=== PATIENT | female | born 1970 | race Caucasian/White ===

== ENCOUNTER 2022-07-17 09:35 | Observation (INO) ==
--- NOTE | 2022-07-14 14:20 | Anesthesiology Consultation ---
Date of Service July 14, 2022 Assessment & Plan (1) Encounter for pre-operative examination: Chart Review Chart Review: Acceptable Risk for Surgery and Patient NOT seen in Pre Admission Testing - Check BSG AM DOS - Check test AM DOS -Discussed with Dr. Licea - patient can proceed as scheduled -COVID screening: Per PAT nursing assessment on 07/14/22. No known COVID-19 positive contacts or current COVID-19 related symptoms. Travel screen negative. Patient vaccinated for Covid. At surgeon discretion if preop Covid testing being done. 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 Chemotherapy currently on hold due to neuropathy and elevated liver enzymes. Patient has follow-up with general surgeryscheduled for surgery on 07/10/[address] Rodriguez. Follow-up in 4 weeks. ESS 12/15/21= Done under [facility] with LMA #4. Atraumatic x 1 attempt History Surgery Operation Date: 07/17/22 13:00 Proposed Procedures p Bilateral Mastectomy, Right Axillary Parker Node Biopsy and Right Axillary Padma Biopsy - Baltazar Rodriguez MD Height/Weight Height: 5 ft 7 in Weight: 105.233 kg Allergies Allergy/AdvReac Type Severity Reaction Status Date / Time morphine Allergy Severe Anaphylaxis Verified 07/14/22 14:46 sulfamethoxazole Allergy Intermediate itching Verified 07/14/22 14:46 [From and rash Sulfamethoxazole-Trimethoprim] trimethoprim Allergy Intermediate itching Verified 07/14/22 14:46 [From and rash Sulfamethoxazole-Trimethoprim] metformin Allergy Mild nausea/vomi Verified 07/14/22 14:46 ting Medications Home Medications Medication Instructions Recorded Confirmed Last Taken olmesartan 20 mg tablet 20 mg PO QPM 08/10/20 07/14/22 12/14/21 ondansetron HCl 8 mg tablet 8 mg PO Q12H PRN Nausea 08/10/20 07/14/22 12/14/21 pravastatin 20 mg tablet 20 mg PO QPM 08/10/20 07/14/22 12/14/21 dulaglutide 4.5 mg/0.5 mL 4.5 mg (0.5 mL) subcut WK #6 mL 08/02/21 07/14/22 12/14/21 subcutaneous pen injector albuterol sulfate 90 mcg/actuation See Rx Instructions .Route 09/30/21 07/14/22 12/14/21 aerosol inhaler .COMPLEX #8.5 ea fexofenadine 180 mg tablet 180 mg PO QPM 07/14/22 07/14/22 Unknown insulin aspart U-100 100 unit/mL 1 sliding scale dose subcut 07/14/22 07/14/22 Unknown (3 mL) subcutaneous pen (Novolog USEASDIRECTD FlexPen U-100 Insulin aspart) magnesium 250 mg tablet 500 mg PO HS 07/14/22 07/14/22 Unknown omeprazole 20 mg capsule,delayed 20 mg PO QPM 07/14/22 07/14/22 Unknown release oxycodone 20 mg tablet,extended 20 mg PO BID 07/14/22 07/14/22 Unknown release,12 hr oxycodone 30 mg tablet 30 mg PO QID PRN Pain 07/14/22 07/14/22 Unknown Past Medical History Medical History (Updated 07/14/22 @ 15:33 by Evelyn Sotelo PA-C) Bilateral sacroiliitis Breast cancer DX 12/2021>RT BREAST + LYMPH NODE (RT ARM RESTRICTION) FINISHED CHEMO 6 WEEKS AGO/NO RADIATION Chronic nausea Diabetes GERD (gastroesophageal reflux disease) History of kidney stones NO SURGERY HTN (hypertension) Hyperlipidemia Left ventricular hypertrophy due to hypertensive disease Leg length discrepancy RLE 0.8cm short Lumbago Neuropathy Opioid dependence Restless leg syndrome Seasonal allergies uses inhaler prn Sleep apnea cpap Thrombocytopenia (~2012) Evaluation by Hematology Thyroid nodule NEEDS REPEAT BIOPSY/BENIGN Follows with S ENT Past Family History Family History Aunt Breast cancer Mother Diabetes Heart disease Hypertension Father Diabetes Hypertension Brother Hypertension Sister Hypertension Other No family history of adverse response to anesthesia No family history of bleeding disorder Denies family history of Ovarian cancer Prostate cancer Myocardial infarction Lung cancer Colorectal cancer Past Surgical History Surgical History (Updated 07/14/22 @ 15:19 by Evelyn Sotelo PA-C) H/O breast biopsy H/O laparoscopy H/O shoulder surgery (~1996) Left H/O sinus surgery History of esophageal dilatation (~2017) History of esophagogastroduodenoscopy (EGD) (~2017) History of vascular access device POWER PORT PER CARD/PT WILL BRING CARD DOS Hx of section X 1 S/P colonoscopy Wallace teeth removed Social History Smoking Status: Current every day smoker tobacco type: cigarettes Smoking cigarettes per day: 10 per day-advised Hx Alcohol Use: No substance use type: does not use Testing Laboratory Results 06/28/22= WBC: 5.93 H/H: 14.2/42.9 PLATELETS: 89 (chronic thrombocytopenia- platelets 105-106 in 05/2022); follows with heme/onc (reviewed labs 06/28/22) SODIUM: 136 POTASSIUM: 4.4 CHLORIDE: 103 CO2: 25 BUN: 8 CREATININE: 0.7 GLUCOSE: 324 AST: 33 ALT: 66 ALK PHOS: 142 (LFTs improved per [facility] heme/onc) 05/31/22= HGB A1C: 8.2 Electrocardiogram Date: 09/23/21 Findings: + ST @ (134bpm ) Right atrial enlargement Cannot rule out anterior infarct Chest X-Ray Date: 09/22/21 Findings: + NAD FINDINGS: An AP, portable, upright chest radiograph is obtained. No prior studies are available for comparison at the time of dictation. Partially degraded The cardiomediastinal silhouette is top normal for projection noting atherosclerotic calcification of the thoracic aorta. There is bibasilar atelectasis. Lungs and pleural spaces are otherwise clear. No pneumothorax is seen. The bony thorax is grossly intact. Postoperative change is noted in the left shoulder. Echocardiogram Date: 02/02/22 EF: 64% LV Function: normal RWMA: + none Other Findings: + LVH (mild/concentric ); no diastolic dysfunction Valvular Disease: + no significant valvular disease No pericardial effusion is noted. No evidence of pulmonary hypertension Stress Test Date: 11/12/19 Type: nuclear Normal stress Myoview study. Normal wall motion and ejection fraction. Other Testing Chest/Abdomen/Pelvis CTA 10/20/21= Unremarkable CT angiogram of the thoracic aorta. There is no airspace consolidation typical for pneumonia or pleural effusion. Age advanced coronary artery calcification. There is an indeterminant 1.6 cm nodular asymmetry in the right breast. This is not well evaluated by CT, and follow-up at the breast center with mammography is recommended for further assessment. Unremarkable CT angiogram of the abdominal aorta and its major branches. No acute infectious or inflammatory findings are seen in the abdomen or pelvis. Hepatic steatosis. Mild hepatomegaly.
[~2022-07-17 09:35] MED LIST: ENOXAPARIN INJ 30 MG/0.3 ML SYR SQ SCH; LR 15ML/HR IV SCH; ceFAZolin 2000MG 2,000 MG/15 ML SYR IV SCH
[2022-07-17] MEDS ORDERED: GLYCOPYRROLATE 0.2 MG/ML VIAL ONE (09:41)
[2022-07-17] MEDS ORDERED: DEXAMETHASONE SOD INJ 4 MG/ML VIAL ONE (09:41)
[2022-07-17] MEDS ORDERED: NEOSTIGMINE METHYLSULFATE 1 MG/ML 10ML VIAL ONE (09:41)
[2022-07-17] MEDS ORDERED: ONDANSETRON INJ 2 MG/ML 2 ML VIAL ONE ×2 (09:41→13:02)
[2022-07-17] MEDS ORDERED: PROPOFOL IV EMULSION 10 MG/ML 20 ML VIAL IV ONE (09:41)
[2022-07-17] MEDS ORDERED: fentaNYL citrate PF 100 MCG/2 ML VIAL ONE ×3 (09:41→13:31)
[2022-07-17] MEDS ORDERED: MIDAZOLAM HCL 1 MG/ML 2ML VIAL ONE (09:41)
[2022-07-17] MEDS ORDERED: LARYING-O-JET KIT (LTA) ONE (09:42)
[2022-07-17] MEDS ORDERED: LIDOCAINE 2% MPF LOCAL 5 ML VIAL ONE (09:42)
[2022-07-17] MEDS ORDERED: ROCURONIUM BROMIDE 10 MG/ML 5 ML VIAL IV ONE ×2 (09:42)
--- NOTE | 2022-07-17 10:08 | History & Physical Bridge Note ---
Date of Service July 17, 2022 History & Physical Bridge Note I have examined the patient, reviewed the History & Physical and in the interval since the performance of the History & Physical I have noted the following changes of clinical significance: no changes noted
[2022-07-17] MEDS ORDERED: LABETALOL HCL IV 5 MG/ML 20ML IV PRN (10:21)
[2022-07-17] MEDS ORDERED: ATROPINE SULFATE 0.1 MG/ML 10ML SYR IV PRN (10:21)
[2022-07-17] MEDS ORDERED: ePHEDrine sulfate 50 MG/ML AMP IV PRN (10:21)
[2022-07-17] MEDS ORDERED: ONDANSETRON INJ 2 MG/ML 2 ML VIAL IV PRN ×2 (10:21→15:09)
[2022-07-17] MEDS ORDERED: PROMETHAZINE HCL 12.5 MG in SODIUM CHLORIDE 0.9% 50 ML IV PRN ×2 (10:21→15:09)
[2022-07-17] MEDS ORDERED: FLUMAZENIL 0.1 MG/1 ML 10 ML VIAL IV PRN (10:21)
[2022-07-17] MEDS ORDERED: NALOXONE HCL 0.4 MG/1 ML VIAL/CARP IV PRN (10:21)
[2022-07-17] MEDS ORDERED: METHYLENE BLUE 0.5% 10 ML VIAL ONE (10:29)
[2022-07-17] MEDS ORDERED: BUPIVACAINE/EPINEPHRINE 0.5% MPF 1:200,000 30 ML VIAL ONE (10:29)
[2022-07-17] MEDS ORDERED: BUPIVACAINE LIPOSOME 1.3% 266 MG/20 ML VIAL ONE (10:30)
--- NOTE | 2022-07-17 10:58 | Nuclear Medicine Report ---
LYMPHOSCINTIGRAPHY CLINICAL HISTORY: Right breast cancer. PROCEDURE: Using standard sterile technique, 4 intradermal and one deep injection of 0.519 mCi of Lym phoseek was placed in the right periareolar breast. The patient tolerated the procedure well. There w ere no immediate complications. The patient was subsequently transported to the surgical suite. No im aging was obtained at the referring physician's request. IMPRESSION: Injection of 0.519 mCi of Lymphoseek in the right breast. ACT 112: Negative or not required by law. Electronically signed by: Zion Orr M.D. 07/17/2022 10:57 AM
[2022-07-17] MEDS ORDERED: ePHEDrine sulfate 50 MG/ML AMP ONE (12:40)
[2022-07-17] MEDS ORDERED: PHENYLEPHRINE 100MCG/ML 5ML SYR ONE (13:01)
--- NOTE | 2022-07-17 14:51 | Post Operative Brief Note ---
Immediate Post Op Note v1 Date of Surgery July 17, 2022 Pre & Post Diagnosis Operation Date: 07/17/22 13:00 Pre-Op Diagnosis: Right Breast Cancer Post-Op Diagnosis: Right Breast Cancer I identified the patient and participated in the time-out.: Yes Procedure Operation Date: 07/17/22 13:00 Actual Procedures p Bilateral Mastectomy, Right Axillary Hawthorne Node Biopsy and Right Axillary Padma Biopsy(Bilateral) - Baltazar Rodriguez MD Surgeon Baltazra Rodriguez MD General Agent IRVING Gaines assisted with tissue retraction, camera op, closure Estimated Blood Loss 25 Findings Consistent with Post-Op Diagnosis Drains Stoney-Ruiz Drain (10mm flat, bilateral breasts)
--- NOTE | 2022-07-17 14:58 | Operative Report ---
Post Operative Report Pre & Post Diagnosis Operation Date: 07/17/22 13:00 Pre-Op Diagnosis: Right Breast Cancer Post-Op Diagnosis: Right Breast Cancer I identified the patient and participated in the time-out.: Yes Procedure Operation Date: 07/17/22 13:00 Actual Procedures p Bilateral Mastectomy, Right Axillary Lester Node Biopsy and Right Axillary Padma Biopsy(Bilateral) - Baltazar Rodriguez MD Surgeon Baltazar Rodriguez MD Tour Sales Representative IRVING Gaines assisted with tissue retraction, camera op, closure Estimated Blood Loss 25 Findings Consistent with Post-Op Diagnosis Lester lymph node x3; first sentinel lymph node contained Padma sports marketing coordinator marker Specimens Left breast mastectomy Right breast mastectomy Lester lymph node x1, 200 count Lester lymph node x2, 20 count Send lymph node x3, 145 count Drains Two 10 Azerbaijani flat LOGAN drains Anesthesia Type General Complications No immediate complications Description of Procedure Patient was taken the operating room, placed supine on the operating table. A timeout was performed, perioperative antibiotics were administered, SCD boots were placed. After adequate anesthesia and analgesia was obtained, the bilateral chest wall and axilla were prepped and draped in the normal sterile fashion. Incision lines were marked for both right and left breast. The Padma sports marketing coordinator probe and the neoprobe were used to confirm sentinel lymph node and Padma Bowling Ball Mold Assembler localized node. Exparel was injected bilaterally to the breast tissue. We began on the left. The elliptical incision was made with a 15 blade scalpel and carried down to the level of subcutaneous tissue. This elliptical incision encompassed the nipple areolar complex. The breast tissue was removed from the overlying skin and soft tissue with a traction countertraction technique using the Bovie electrocautery. The limits of the dissection were superiorly the clavicle, medially to the sternum, inferiorly to the external oblique fascia, and laterally the axillary fat pad. Once dissection was complete, the breast was removed from the underlying pectoralis major muscle with the electrocautery, taking care to remove the fascia with it. Bleeding vessels were clamped and tied with 3-0 silk. Breast was oriented with sutures and ink and was sent off the field for specimen. Attention was turned hemostasis, and the area was copiously irrigated and suctioned free. Hemostasis was excellent. A 10 Azerbaijani flat round LOGAN drain was placed through separate stab incision was secured with 2-0 nylon suture. Subcutaneous tissue was closed with interrupted 3-0 Vicryl. The skin was closed with running 4-0 Monocryl subcuticular stitch. Dermabond was applied. We then turned our attention to the right breast. Again the elliptical incision was made with 15 blade scalpel and carried down to the level of the subcutaneous tissue. This incision encompassed the nipple areolar complex. The superior flap was raised using the traction countertraction technique with the Bovie electrocautery. This exposed the axilla laterally. Using the neoprobe and the Padma sports marketing coordinator device, is able to localize the sentinel lymph node. The first sentinel lymph node contained the Padma sports marketing coordinator device. It was excised and sent off field for specimen. Two other sentinel lymph nodes were identified using the neoprobe, were dissected free circumferentially, and were sent off field for specimen. The background radiation was less than 5% of the sentinel lymph node. We then continued with the mastectomy on the right side. Again the limits of the dissection were the clavicle superiorly, the sternum medially, and the external bleak fascia inferiorly, as well as the axillary fat pad laterally. Once the dissection was complete, the breast was removed from the underlying pectoralis major muscle with the electrocautery, taking care to remove the fascia with it. Bleeding vessels were clamped and tied with 3-0 silk. The breast was oriented with sutures and ink and was sent off field for specimen. Attention was turned hemostasis. The area was copiously irrigated and suctioned free, and hemostasis was found to be excellent. A 10 Azerbaijani flat LOGAN drain was placed through separate stab incision was secured with 2-0 nylon suture. Subcutaneous tissue was closed with interrupted 3-0 Vicryl. The skin was closed with a running 4-0 Monocryl subcuticular stitch. Dermabond was applied. Dressings were applied. She tolerated the procedure without complication, transferred in stable condition to the PACU. All instrument, needle, and sponge counts were correct at the end of the case. My television production assistant was necessary throughout the procedure for tissue retraction, possible camera operation, and closure of the wounds. I understand that section 1842(b)(7)(D) of the Social Security act generally prohibits Medicare physician fee schedule payment for the services of assistants at surgery in teaching hospitals when qualified residents are available to furnish such services. I certify that the services for which payment is claimed were medically necessary and that no qualified resident was available to perform the services. I further understand that these services are subject to postpay ment review by the Medicare carrier. I attest to the content of the Intraoperative Record and any orders documented therein. Any exceptions are noted below.
[2022-07-17] MEDS ORDERED: LACTATED RINGER'S 1,000 ML IV SCH (15:09)
[2022-07-17] MEDS ORDERED: diphenhydrAMINE Capsule 25 MG CAP PO PRN (15:09)
[2022-07-17] MEDS ORDERED: oxyCODONE/ACETAMINOPHEN 5mg/325mg TAB PO PRN (15:10)
[2022-07-17] MEDS ORDERED: KETOROLAC 30 MG/ML VIAL ONE (15:17)
[2022-07-17] MEDS: fentaNYL citrate PF 100 MCG/2 ML VIAL IV PRN ×2 (15:20→15:25)
--- NOTE | 2022-07-17 15:38 | Anesthesiology Progress Note ---
Date of Service July 17, 2022 Anesthesia Post Procedure Vital Signs Vital Signs: Temp Pulse Resp BP Pulse Ox O2 Del Method 07/17/22 10:06 36.8 C 106 H 20 137/79 98 Room Air Transfer of Care Handoff Completed per policy Notes Mental Status: alert / awake / arousable Patient Amnestic to Procedure: Yes Nausea / Vomiting: adequately controlled Pain: adequately controlled Airway Patency, RR, SpO2: stable & adequate BP & HR: stable & adequate Hydration State: stable & adequate Anesthetic Complications: no major complications apparent
[2022-07-17] MEDS ORDERED: HYDROmorphone INJ 1 MG/ML SYRINGE ONE (16:04)
[2022-07-17] MEDS ORDERED: HYDROmorphone INJ 0.5 MG/0.5 ML SYR IV SCH (16:15)
--- NOTE | 2022-07-17 19:12 | Hospitalist Consultation ---
Date of Consultation July 17, 2022 Assessment & Plan (1) Tachycardia: Patient has elevated heart rate. EKG confirms sinus tchycardia, review of records shows her HR has been elevated in the past, however this is on the higher range. Will obtain a lactic acid and renal panel. will give fluid overnight and monitor. History of Present Illness Reason for Consultation: Medical management Attending Physician: Baltazar Rodriguez MD History of Present Illness 52 yo female with PMH described below is hospitalized for a partialBilateral M astectomy, Right Axillary Crozier Node Biopsy and Right Axillary Padma Biopsy(Bilateral) Medicine was consulted for post op management. HR is elevated at 110 or 120. However, patient reports this is common for her and she has no new complaints. Allergies Allergy/AdvReac Type Severity Reaction Status Date / Time morphine Allergy Severe Anaphylaxis Verified 07/17/22 09:58 sulfamethoxazole Allergy Intermediate itching Verified 07/17/22 09:58 [From and rash Sulfamethoxazole-Trimethoprim] trimethoprim Allergy Intermediate itching Verified 07/17/22 09:58 [From and rash Sulfamethoxazole-Trimethoprim] metformin Allergy Mild nausea/vomi Verified 07/17/22 09:58 ting Home Medications Medication Instructions Recorded Confirmed Type olmesartan 20 mg tablet 20 mg PO QPM 08/10/20 07/17/22 History ondansetron HCl 8 mg tablet 8 mg PO Q12H PRN Nausea 08/10/20 07/17/22 History pravastatin 20 mg tablet 20 mg PO QPM 08/10/20 07/17/22 History dulaglutide 4.5 mg/0.5 mL 4.5 mg (0.5 mL) subcut WK #6 mL 08/02/21 07/17/22 Rx subcutaneous pen injector albuterol sulfate 90 mcg/actuation See Rx Instructions .Route 09/30/21 07/17/22 Rx aerosol inhaler .COMPLEX #8.5 ea fexofenadine 180 mg tablet 180 mg PO QPM 07/14/22 07/17/22 History insulin aspart U-100 100 unit/mL 1 sliding scale dose subcut 07/14/22 07/17/22 History (3 mL) subcutaneous pen (Novolog USEASDIRECTD FlexPen U-100 Insulin aspart) magnesium 250 mg tablet 500 mg PO HS 07/14/22 07/17/22 History omeprazole 20 mg capsule,delayed 20 mg PO QPM 07/14/22 07/17/22 History release oxycodone 20 mg tablet,extended 20 mg PO BID 07/14/22 07/17/22 History release,12 hr oxycodone 30 mg tablet 30 mg PO QID PRN Pain 07/14/22 07/17/22 History oxycodone-acetaminophen 5 mg-325 1 tab PO Q6H PRN pain #15 tabs 07/18/22 Rx mg tablet (Percocet) Patient History Medical History Bilateral sacroiliitis Breast cancer DX 12/2021>RT BREAST + LYMPH NODE (RT ARM RESTRICTION) FINISHED CHEMO 6 WEEKS AGO/NO RADIATION Chronic nausea Diabetes GERD (gastroesophageal reflux disease) History of kidney stones NO SURGERY HTN (hypertension) Hyperlipidemia Left ventricular hypertrophy due to hypertensive disease Leg length discrepancy RLE 0.8cm short Lumbago Neuropathy Opioid dependence Restless leg syndrome Seasonal allergies uses inhaler prn Sleep apnea cpap Thrombocytopenia (~2012) Evaluation by Hematology Thyroid nodule NEEDS REPEAT BIOPSY/BENIGN Follows with [facility] ENT Surgical History H/O breast biopsy H/O laparoscopy H/O shoulder surgery (~1996) Left H/O sinus surgery History of esophageal dilatation (~2017) History of esophagogastroduodenoscopy (EGD) (~2017) History of vascular access device POWER PORT PER CARD/PT WILL BRING CARD DOS Hx of section X 1 S/P colonoscopy [place] teeth removed Family History Aunt Breast cancer Mother Diabetes Heart disease Hypertension Father Diabetes Hypertension Brother Hypertension Sister Hypertension Other No family history of adverse response to anesthesia No family history of bleeding disorder Denies family history of Ovarian cancer Prostate cancer Myocardial infarction Lung cancer Colorectal cancer Social History Smoking Status: Current every day smoker Tobacco Type: Cigarettes Age Started Using Tobacco: 33; packs per day: 0.5; Cigarettes Per Day: 10 per day-advised; Second Hand Exposure: No; Hx Alcohol Use: No Preferred Language: Vincentian Communication Ability: Effective Visual Impairment: Partially Limited Hearing Ability: Hard of Hearing Fan Runner Required: No Beliefs That Will Affect Care: None marital status: marital status details: with Current Living Situation: Family current occupational status: disabled How many Children do You have: 1 How many Children do You have Comment: Scarlett Concha Feels Safe at Home: Yes Childhood Exposure to Second-Hand Smoke: No caffeine: Yes during the past year weight has: increased > 10 lbs Dental Care, Regularly: Yes Physical Activity Frequency: 5-6 Times per Week Seatbelt Use: always Sunscreen Use: Yes Assistive Devices: CPAP Review of Systems Review of Systems: All systems reviewed & are unremarkable except as noted in HPI & below Physical Exam Constitutional: WD/WN, vitals as above Eyes: PERRL, conjunctivae normal, anicteric sclerae ENMT: external ear and nose normal, oropharynx normal Respiratory: not using accessory muscles to breath Cardiovascular: RRR, no murmur, no edema (except for tachycardia) Gastrointestinal (Abdomen): normal bowel sounds, soft, nontender, no hepatosplenomegaly Musculoskeletal: no cyanosis or clubbing, extremities motor strength 5/5 Psychiatric: A+Ox3, euthymic affect Results & Data Results & Data Vital Signs (Past 12 Hours) Vital Signs Temp Pulse Pulse Resp BP Pulse Ox O2 Del Method 07/17/22 18:25 Room Air 07/17/22 19:00 36.6 C 128 H 16 114/67 97 Room Air 07/17/22 18:00 36.5 C 122 H 18 132/69 98 Room Air 07/17/22 17:39 36.4 C L 117 H 18 146/83 H 97 Room Air 07/17/22 17:00 36.8 C 122 H 17 125/75 96 Room Air 07/17/22 16:30 37.3 C 113 H 18 128/87 95 Room Air 07/17/22 16:20 37.3 C 111 H 17 145/86 H 93 Room Air 07/17/22 16:10 37.3 C 109 H 19 126/89 93 Room Air 07/17/22 16:00 37.3 C 109 H 24 139/75 93 Room Air 07/17/22 15:50 37.3 C 112 H 22 145/83 H 97 Room Air 07/17/22 15:40 101 H 21 129/81 96 Oxymask 07/17/22 15:30 101 H 21 140/72 94 Oxymask 07/17/22 15:20 100 H 26 H 155/82 H 95 Oxymask 07/17/22 15:12 36.3 C L 100 H 25 H 137/82 99 Oxymask 07/17/22 10:06 36.8 C 106 H 20 137/79 98 Room Air O2 Flow Rate 07/17/22 18:25 07/17/22 19:00 07/17/22 18:00 07/17/22 17:39 07/17/22 17:00 07/17/22 16:30 07/17/22 16:20 07/17/22 16:10 07/17/22 16:00 07/17/22 15:50 07/17/22 15:40 4 07/17/22 15:30 5 07/17/22 15:20 6 07/17/22 15:12 7 07/17/22 10:06 PG Care Time/CCT Total # of Minutes Spent Total Time Spent with Patient: Total time spent is greater than 50% in coordination of care (as documented) at patient's floor/unit and/or counseling patient: Coding Level of Care Code 04030 IN/OBS CONSULT LVL 3,45M Diagnoses Tachycardia R00.0
[2022-07-17 20:39] LABS: Base Excess VBG -2.2 mEq/L; HCO3 VBG 23 mmol/L; Oxygen Saturation VBG 80.7 %; PCO2 VBG 41 mmHg (38-50); PO2 VBG 48 mmHg; pH VBG 7.36 (7.36-7.41)
[2022-07-17 20:41] LABS: Hematocrit (blood only) 38.4 % (37.0-47.0); Mean Corpuscular Hemoglobin 33.3 pg (25.0-34.0); Mean Corpuscular Hgb Conc 33.9 g/dL (32.0-36.0); Mean Corpuscular Volume 98.5 fL (80.0-100.0); Platelet Count 105 K/uL (130-400); RDW Coefficient of Variation 12.6 % (11.5-14.5); RDW Standard Deviation 45.1 fL (36.4-46.3); White Blood Count 9.04 K/ul (4.8-10.8)
[2022-07-17 20:59] LABS: BUN Creatinine Ratio 12.1 (10-20); Calcium 8.6 mg/dl (8.6-10.3); Creatinine Clr Calc Pharmacy 126.1 ml/min; Est GFR (African American) 118.5 ml/min; Est GFR (Non-African American) 102.3 ml/min; Potassium 4.2 mmol/L (3.5-5.1)
[2022-07-17] MEDS ORDERED: FEXOFENADINE HCL 180 MG TAB PO SCH (21:00)
[2022-07-17] MEDS ORDERED: PANTOprazole 40 MG TAB PO SCH (21:00)
[2022-07-17] MEDS ORDERED: PRAVASTATIN SOD 20 MG TAB PO SCH (21:00)
[2022-07-17] MEDS ORDERED: LOSARTAN POTASSIUM 50 MG TAB PO SCH (21:00)
[2022-07-17] MEDS ORDERED: CARBOHYDRATES FOR HYPOGLYCEMIA PO PRN (21:04)
[2022-07-17] MEDS ORDERED: GLUCAGON FOR INJ 1 MG VIAL SQ PRN (21:04)
[2022-07-17] MEDS ORDERED: GLUCOSE 10 TAB/TUBE PO PRN (21:04)
[2022-07-17] MEDS ORDERED: DEXTROSE 50% 50 ML SYRINGE IV PRN (21:04)
[2022-07-17] MEDS ORDERED: GLUCOSE 40% GEL 15 GM TUBE PO PRN (21:04)
[2022-07-17] MEDS ORDERED: ACETAMINOPHEN 325 MG TAB PO PRN (21:06)
[2022-07-17] MEDS ORDERED: ONDANSETRON 4 MG OD TAB PO PRN (21:10)
[2022-07-17] MEDS ORDERED: MAGNESIUM OXIDE 400 MG TAB PO SCH (21:10)
[2022-07-17] MEDS ORDERED: LACTATED RINGER'S 1,000 ML IV ONE (21:16)
[2022-07-17] MEDS ORDERED: INSULIN ASPART PER UNIT CHARGE ONE (21:52)
[2022-07-17] MEDS: INSULIN ASPART PER UNIT CHARGE SC SCH (21:55)
[2022-07-17] MEDS: oxyCODONE HCL 20 MG TABCR (OxyCONTIN) PO SCH (21:57)
[2022-07-18] MEDS: oxyCODONE HCL IR 5 MG TAB (IMMEDIATE RELEASE) PO PRN ×2 (00:26→04:15)
[2022-07-18] MEDS ORDERED: oxyCODONE HCL IR 5 MG TAB (IMMEDIATE RELEASE) PO PRN ×2 (04:14→04:15)
[2022-07-18] MEDS ORDERED: HYDROmorphone INJ 0.5 MG/0.5 ML SYR IV PRN (06:45)
[2022-07-18] MEDS ORDERED: oxyCODONE HCL 20 MG TABCR (OxyCONTIN) PO SCH (06:45)
[2022-07-18] MEDS ORDERED: ENOXAPARIN INJ 40 MG/0.4 ML SYR SQ SCH (08:00)
[2022-07-18] MEDS: oxyCODONE HCL 20 MG TABCR (OxyCONTIN) PO SCH (08:34)
[2022-07-18] MEDS: INSULIN ASPART PER UNIT CHARGE SC SCH ×2 (08:55→12:44)
--- NOTE | 2022-07-18 09:08 | Surgery Progress Note ---
Date of Service July 18, 2022 Assessment & Plan (1) Infiltrating ductal carcinoma of right breast: Plan: pod 1. S/p bilateral mastectomy with sentinel lymph node biopsy on the right Doing well. Added OxyContin and IV Dilaudid for pain control DVT prophylaxis with SCD boots, Lovenox, early ambulation aggressive pulmonary toilet with early ambulation and incentive spirometry Advance diet as tolerated Drain teaching for home Possible discharge to home after lunch today if okay with Medicine Admission and Anticipated Discharge Date Admission Date: July 17, 2022 Subjective postop day 1 status post bilateral mastectomy with right sentinel lymph node biopsy. Had some pain overnight as she missed her dose of OxyContin. Doing fairly well today. Tolerating regular diet. No fevers or chills. No nausea or vomiting. Physical Exam Physical Exam: NAD, a and O x3 chest wall: Dressings clean, dry, intact; LOGAN drains with minimal serosanguineous output Results & Data Vital Signs (Past 12 Hours) Vital Signs Temp Pulse Resp BP Pulse Ox O2 Del Method 07/18/22 07:32 37.1 C 112 H 20 111/74 95 CPAP 07/18/22 03:00 37.3 C 109 H 18 122/77 99 Room Air 07/17/22 22:18 37.1 C 103 H 18 126/77 98 Room Air
--- NOTE | 2022-07-18 12:55 | Electrocardiogram Report ---
Test Reason : Blood Pressure : / mmHG Vent. Rate : 113 BPM Atrial Rate : 113 BPM P-R Int : 142 ms QRS Dur : 076 ms QT Int : 344 ms P-R-T Axes : 059 018 047 degrees QTc Int : 471 ms Sinus tachycardia Low voltage QRS Borderline ECG When compared with ECG of 23-SEP-2021 17:59, No significant change was found Confirmed by Parveen Cheek ([id number]) on 07/18/2022 12:55:19 PM Referred By: Baltazar Rodriguez Confirmed By:Parveen Cheek
--- NOTE | 2022-07-18 13:09 | Hospitalist Progress Note ---
Date of Service July 18, 2022 Assessment & Plan (1) Tachycardia: Plan: Patient has elevated heart rate. EKG confirms sinus tachycardia. review of records shows her HR has been elevated in the past, however this is on the higher range. Will obtain a lactic acid and renal panel. will give fluid overnight and monitor. On 07/18, her HR appears improved. Clinically feels well. Her lactic acid was elevated but her BP is strong. She has good perifusion. This is likely lactic acidosis type B. Admission and Anticipated Discharge Date Admission Date: July 17, 2022 Subjective 52 yo female reports feeling well. She states she would like to go home. She has no complaints. Review of Systems Review of Systems: All systems reviewed & are unremarkable except as noted in HPI & below Physical Exam Constitutional: WD/WN, vitals as above Eyes: PERRL, conjunctivae normal, anicteric sclerae ENMT: external ear and nose normal, oropharynx normal Cardiovascular: RRR, no murmur, no edema (except for tachycardia) Gastrointestinal (Abdomen): normal bowel sounds, soft, nontender, no hepatosplenomegaly Musculoskeletal: no cyanosis or clubbing, extremities motor strength 5/5 Psychiatric: A+Ox3, euthymic affect Results & Data Results & Data Vital Signs (Past 12 Hours) Vital Signs Temp Pulse Resp BP Pulse Ox O2 Del Method 07/18/22 07:32 37.1 C 112 H 20 111/74 95 CPAP 07/18/22 03:00 37.3 C 109 H 18 122/77 99 Room Air PG Care Time/CCT Total # of Minutes Spent Total Time Spent with Patient: Total time spent is greater than 50% in coordination of care (as documented) at patient's floor/unit and/or counseling patient: Coding Level of Care Code 06256 SUB INP/OBS CARE 2/35MIN Diagnoses Tachycardia R00.0
--- NOTE | 2022-07-20 09:10 | Discharge Summary ---
Date of Service July 20, 2022 Admission HPI Per Admitting Provider Florencia presented to [facility] for elective bilateral mastectomy and right sentinel lymph node biopsy for infiltrating ductal carcinoma of right breast s/p neoadjuvant chemotherapy. Principal Diagnosis Infiltrating ductal carcinoma of right breast s/p neoadjuvant chemotherapy Discharge Data Allergies Allergy/AdvReac Type Severity Reaction Status Date / Time morphine Allergy Severe Anaphylaxis Verified 07/17/22 09:58 sulfamethoxazole Allergy Intermediate itching Verified 07/17/22 09:58 [From and rash Sulfamethoxazole-Trimethoprim] trimethoprim Allergy Intermediate itching Verified 07/17/22 09:58 [From and rash Sulfamethoxazole-Trimethoprim] metformin Allergy Mild nausea/vomi Verified 07/17/22 09:58 ting Consultations 07/17/22 15:09 Consult Hospitalist Routine Procedures Performed Operation Date: 07/17/22 13:00 Actual Procedures p Bilateral Mastectomy, Right Axillary [place] Node Biopsy and Right Axillary [place] Biopsy(Bilateral) - Baltazar Rodriguez MD Hospital Course (1) Infiltrating ductal carcinoma of right breast: / Patient was taken to operating room and underwent bilateral mastectomy with right axillary sentinel lymph node biopsy by Dr. Rodriguez on 07/17/2022. Patient tolerated procedure well and was transferred to recovery then to medica/surgical floor for postoperative observation and pain management. Hospitalist was consulted due to comorbidities. She was tachycardia in evening of operative day however hemodynamically stable. Lactic acid was elevated but she was otherwise stable. POD # 1 patient was doing well. Had moderate postop pain in the evening but missed her home OxyContin dose. Patients diet was advanced as tolerated and activity as tolerated. Minimal laurita drain output. Patient was discharged home on POD # 1 in stable condition once pain better controlled. Total Time Total Time Spent Total Time Spent (In Minutes): 20 Discharge Plan Discharge Items Patient Disposition: Home - Self-Care Reason For Visit: Right Breast Cancer Discharge Diagnosis: Right breast cancer Activity: Per Instructions section Lifting: No more than 10 pounds Sexual Activity: Wait until after follow-up appointment Exercise/Sports: Wait until after follow-up appointment Non-emergency contact: Surgeon Call non-emergency contact if: you have any medication questions, your symptoms worsen, your pain is not controlled, your pain is worsening, your pain is unusual for you, your pain is concerning for you, your temperature is above 101.5, your wound has increased redness, your wound has increased drainage and your wound pain has increased Follow-up/Referrals: Milton Steward, [Primary Care Provider] - 07/27/22 11:30 am Diet: Regular Addtl Attending Provider Instructions: ACTIVITY RECOMMENDATIONS: * No lifting, pushing, pulling or exercising the affected side for2 weeks. RETURN TO SCHOOL/WORK: * No return to work or school until after follow up appointment. MEDICATIONS: * Percocet 5/325mg tabs every 4-6 hours as needed for pain. DIET: * Resume previous diet. SPECIAL CARE INSTRUCTIONS: * Keep dressings on for 48 hours. You may then remove the dressing. Use the provided bra for support. * Empty and record drain output as directed. When drainage drops below 20mL/day for 2 consecutive days, call the office for appointment to remove drain. * Leave Dermabond in place. It will peel off on its own after 1-2 weeks. * Apply ice 10 minutes on and 10 minutes off as needed. * Exercises for shoulder motion: small circles with the right arm/shoulder a few times a day; "walk" up the wall with fingers a few times a day (as far as you can go without pain). These will help keep mobility of your arms/shoulders * Your referring physician should have the results after approximately 5 to 7 business days. * Call for unusual bleeding, fever, drainage, etc or if you have any questions call during normal business hours. * For an emergency after hours go to the emergency room. FOLLOW UP VISIT: Follow-up with Referring Physician as scheduled. Pending Studies at Discharge: No Stand-Alone Forms: [facility] Medications and DC Order Prescriptions: New oxycodone-acetaminophen [Percocet] 5-325 mg tablet 1 tab PO Q6H PRN (Reason: pain) Qty: 15 0RF Continued olmesartan 20 mg tablet 20 mg PO QPM ondansetron HCl 8 mg tablet 8 mg PO Q12H PRN (Reason: Nausea) pravastatin 20 mg tablet 20 mg PO QPM albuterol sulfate 90 mcg/actuation HFA aerosol inhaler See Rx Instructions .ROUTE .COMPLEX Qty: 8.5 3RF Dose Instruction: INHALE 1 PUFF BY MOUTH 4 TIMES A DAY Patient Comments: TAKES PRN SOB Rx Instructions: INHALE 1 PUFF BY MOUTH 4 TIMES A DAY dulaglutide 4.5 mg/0.5 mL pen injector 4.5 mg subcut WK Qty: 6 3RF Rx Instructions: TAKES ON SUNDAYS fexofenadine 180 mg Tablet 180 mg PO QPM magnesium 250 mg Tablet 500 mg PO HS oxycodone 30 mg Tablet 30 mg PO QID PRN (Reason: Pain) oxycodone 20 mg Tablet Extended Release 12 Hr 20 mg PO BID insulin aspart U-100 [Novolog FlexPen U-100 Insulin] 100 unit/mL (3 mL) Insulin Pen 1 sliding scale dose SUBCUT USEASDIRECTD omeprazole 20 mg capsule,delayed release(DR/EC) 20 mg PO QPM Discharge Orders: Discharge Order (Routine); Ordered 07/18/22 Ordered By: Baltazar Angulo/Julia Patient Handouts: Managing Type 2 Diabetes, Breast Surg Post Op Exercises, Special Foot Care for Diabetes Admission Data Admit Date/Time: 07/17/22 15:03 Attending Provider: Baltazar Rodriguez Admit Provider: Baltazar Rodriguez Primary Care Provider: Milton Steward Other Providers: Noel Dick ; Danielle Harmon ; Lev Argueta ; Gt Mcwilliams ; Jeromy Curry ; Nimesh Rouse ; Simba Grant ; Stephanie Rangel ; Kiara Gambino ; Carlos Castano ; Williams Mcbride ; Geraldine Gamble ; Emmanuel Doyle ; Blanca Patel ; Collette Gold ; Alli Diaz ; Cristopher Garcia Kimberly A. ; Danielle Martinez ; Sadia Foster ; Jose Harris ; Lev Craig ; Janie June ; Carlos Stapleton ; Kemal Veloz ; Cynthia Armstrong ; Blu Bar ; Romulo Sherwood ; Susy Estes ; Melvin Huber ; Connie Moralez ; Ashley Rothman ; Zurdo Lara ; Miriam Ware ; Migel Hoffman ; Gt Jarrell Other Interventions: Discharge Summary Assessment (RN) Last Done: 07/18/22 13:09
== END 2022-07-18 13:35 | disposition home or self-care (01) ==
LOC: 3W 09:35 → ASU 09:35

== ENCOUNTER 2023-11-17 22:25 | Inpatient (IN) ==
--- NOTE | 2023-11-17 23:27 | Emergency Department Note ---
Impression & Plan Right sided abdominal pain, Ureterolithiasis ED Provider Note ED Provider Note NAME: ZULMA MCCARTY AGE:53 SEX: Female : 1970 ARRIVES VIA: Private vehicle INFORMANT: Patient ED PROVIDER(s): Stephanie Castro DO CHIEF COMPLAINT: Abdominal pain, vomiting HPI: This is a 53-year-old female who presents emergency department due to concern for worsening right-sided abdominal pain and persistent vomiting. Patient was seen and evaluated here earlier today and diagnosed with a kidney stone and a UTI per her report. She states she was told the kidney stone is 4 mm in the lower part of her right ureter. She has had a stone previously which she passed spontaneously. She states she was given IV antibiotics here for her stone as well as IV Dilaudid for pain. She states since arriving home her pain has worsened despite taking the Percocet she was given and she began to have recurrent vomiting and has been unable to keep down even water. She states she does break out in chills and sweats when she vomits however no other measurable fever. She states the pain does seem to radiate into her back. No other history of kidney problems. PAST MEDICAL HISTORY:See Below PAST SURGICAL HISTORY:See Below FAMILY HISTORY:See Below SOCIAL HISTORY:See Below HOME MEDICATIONS:See Below ALLERGIES:See Below VITALS:See Below PHYSICAL EXAMINATION: GENERAL: alert, uncomfortable appearing, well nourished, mild distress EYE EXAM: normal conjunctiva, PERRL and EOM's grossly intact OROPHARYNX: no exudate, no erythema, lips, buccal mucosa, and tongue normal and mucous membranes are moist NECK: supple, no nuchal rigidity, no adenopathy, non-tender LUNGS: Clear to auscultation. Normal chest wall mechanics, no w/r/r HEART: no murmurs, S1 normal and S2 normal ABDOMEN: abdomen soft, right lateral abdominal pain with palpation, normo-active bowel sounds, no masses, no rebound or guarding. BACK: Pain with palpation over the right lateral lumbar area, no midline tenderness, no CVA tenderness. SKIN: no rashes, petechiae, orbruising UPPER EXTREMITIES: upper extremities are grossly normal. FROM, nml pulses b/l. LOWER EXTREMITIES: No pitting edema. FROM, nml pulses b/l. NEURO EXAM: Normal sensorium, cranial nerves II-XII grossly intact, normal speech, no facial droop,nogross weakness of arms, no gross weakness of legs. Gross sensation intact. No ataxia. Vital Signs: reviewed and remarkable Differential Diagnosis: Renal colic, worsening hydronephrosis, ADAMS, ascending UTI, pyelonephritis, colitis, DKA, bowel obstruction, perforation, GI bleed, as well as others were considered MEDICAL DECISION MAKING: This is a 53-year-old female presents emergency department due to worsening abdominal pain and recurrent nausea and vomiting. Patient seen and evaluated here earlier today and diagnosed with a kidney stone and UTI per her report. She was given medication to take at home which she did upon discharge however continued to have worsening pain. She then began to have recurrent vomiting. Patient uncomfortable appearing on arrival. She was afebrile and vital signs otherwise stable. Labs drawn and sent, IV established, patient monitored on telemetry. She was given IV fluids, IV Dilaudid, IV Zofran, IV Pepcid, and IV Tylenol for pain. She did require multiple doses of IV Dilaudid and did have improvement in her pain although not resolution. I did review prior CT of the abdomen and pelvis and did not feel she required repeat imaging. No evidence of ADAMS or worsening infection on review of labs. Due to concern for pain control after failed outpatient mgmt in the setting of a stone plus possible evolving UTI in a patient who is a known diabetic, we discussed additional inpatient evaluation and treatment. Patient was in agreement. Case discussed with the hospitalist team for additional evaluation and management. Consultation(s): 0115: Discussed with Dr. Andrews, [facility] hospitalist team, for additional evaluation and management. ER Treatment Provided: See below Diagnostics Interpreted By Me: -Cardiac Monitoring: An order was placed for continuous cardiac monitoring. The monitor shows a rate of 70 with normal sinus rhythm. -Laboratory studies: As stated above and show below. Triage Nursing Note Reviewed Prior/Outside Records Reviewed -prior CT abdomen/pelvis from earlier today reviewed Past Med/Surg History Problem List Ureterolithiasis (Acute) Right sided abdominal pain (Acute) UTI (urinary tract infection) (Acute) Kidney calculus (Acute) Kidney stone Epigastric pain Chest wall pain Headache Radiation burn Burn Malignant neoplasm of upper-outer quadrant of right breast in female, estrogen receptor positive (Chronic 01/05/22) Non-healing surgical wound Lumbar facet joint pain Obstructive sleep apnea Treated with CPAP, [place] [facility] [place] type 2, controlled (~2012) Abnormal liver enzymes Tobacco use Elevated alkaline phosphatase level Dysphagia Thyroid nodule Chronic sinusitis of both maxillary sinuses Infiltrating duct adenocarcinoma Estrogen receptor positive status (ER+) 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 Infiltrating ductal carcinoma of right breast Tachycardia Thrombocytopenia (~2012) HTN (hypertension) Left ventricular hypertrophy due to hypertensive disease Hyperlipidemia GERD (gastroesophageal reflux disease) Chronic nausea Opioid dependence Lumbago Bilateral sacroiliitis Leg length discrepancy RLE 0.8cm short Medical History History of kidney stones NO SURGERY Thyroid nodule NEEDS REPEAT BIOPSY/BENIGN Follows with [facility] ENT Breast cancer DX 12/2021>RT BREAST + LYMPH NODE (RT ARM RESTRICTION) FINISHED CHEMO 6 WEEKS AGO/NO RADIATION Neuropathy Restless leg syndrome Seasonal allergies Sleep apnea cpap Diabetes IDDM Surgical History Status post debridement (08/10/22) Right Mastectomy Wound Debridement and Washout(Right) Dr. Baltazar Rodriguez Hx of bilateral mastectomy (07/17/22) + RT sentinel lymph node bx Dr. Baltazar Rodriguez History of vascular access device POWER PORT PER CARD H/O laparoscopy H/O breast biopsy (01/05/22) [place] teeth removed S/P colonoscopy History of esophageal dilatation (~2017) History of esophagogastroduodenoscopy (EGD) (~2017) Hx of section X 1 H/O shoulder surgery (~1996) Left H/O sinus surgery Family History Aunt Breast cancer Mother Diabetes Heart disease Hypertension Father Diabetes Hypertension Brother Hypertension Sister Hypertension Unknown Breast cancer Daughter No problems noted. 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); Do You Dip or Chew Tobacco: No; Hx Alcohol Use: No Hx Substance Use: No Preferred Language: Grenadian Communication Ability: Effective Visual Impairment: No Limitations Hearing Ability: Normal Fruit Trimmer Required: No Beliefs That Will Affect Care: None marital status: marital status details: with Current Living Situation: Spouse current occupational status: disabled How many Children do You have: 1 How many Children do You have Comment: Concha Pantoja Other Information That Helps Us Care for You: No Feels Safe at Home: Yes Safety Concerns: Feels Safe At This Time Childhood Exposure to Second-Hand Smoke: No Diet: diabetic caffeine: Yes (coffee) during the past year weight has: decreased > 10 lbs Dental Care, Regularly: Yes Physical Activity Frequency: 5-6 Times per Week Seatbelt Use: always Sunscreen Use: Yes Assistive Devices: CPAP Allergies Allergies Allergy/AdvReac Type Severity Reaction Status Date / Time morphine Allergy Severe Anaphylaxis Verified 11/18/23 02:13 metformin Allergy Mild nausea/vomi Verified 11/18/23 02:13 ting sulfamethoxazole AdvReac burning Verified 11/18/23 02:13 [From Bactrim] sensation internally trimethoprim [From Bactrim] AdvReac Burning Verified 11/18/23 02:13 sensation internally Home Meds Home Medications Medication Instructions Recorded Confirmed ondansetron HCl 8 mg tablet 8 mg PO Q12H PRN Nausea 08/10/20 11/18/23 pravastatin 20 mg tablet 20 mg PO QPM 08/10/20 11/18/23 insulin aspart U-100 100 unit/mL 1 sliding scale dose subcut UD PRN 07/14/22 11/18/23 (3 mL) subcutaneous pen (Novolog Hyperglycemia FlexPen U-100 Insulin aspart) magnesium 250 mg tablet 500 mg PO HS 07/14/22 11/18/23 albuterol sulfate 90 mcg/actuation 1 puff inhalation QID PRN 08/03/22 11/18/23 aerosol inhaler Shortness Of Breath empagliflozin 10 mg tablet 10 mg PO DAILY 08/29/22 11/18/23 letrozole 2.5 mg tablet 2.5 mg PO QAM 09/05/22 11/18/23 mupirocin calcium 2 % topical cream 1 applic topical TID PRN Radiation 06/15/23 11/18/23 dermatitis azelastine 137 mcg (0.1 %) nasal 1 spray intranasal AMHS 11/18/23 11/18/23 spray baclofen 10 mg tablet 10 mg PO HS 11/18/23 11/18/23 ipratropium 20 mcg-albuterol 100 1 puff inhalation UD 11/18/23 11/18/23 mcg/actuation mist for inhalation (Combivent Respimat) oxycodone 30 mg tablet 30 mg PO Q4H PRN Pain 11/18/23 11/18/23 Previous Rx's Medication Instructions Recorded dulaglutide 4.5 mg/0.5 mL 4.5 mg (0.5 mL) subcut WK #6 mL 08/02/21 subcutaneous pen injector omeprazole 20 mg capsule,delayed 20 mg PO QPM #90 caps 02/26/23 release ciprofloxacin HCl 500 mg tablet 500 mg PO BID #14 tabs 11/17/23 (Cipro) hydrocodone 5 mg-acetaminophen 325 1 tab PO Q6H PRN pain #20 tabs 11/17/23 mg tablet tamsulosin 0.4 mg capsule (Flomax) 0.4 mg PO HS #7 caps 11/17/23 Results & Data (ED) Vital Signs Vital Signs - 24 hr 11/17/23 22:29 11/17/23 23:15 11/17/23 23:18 Temperature 36.6 C Temperature Source Temporal Artery Scan Pulse Rate 93 H 82 Pulse Rate [Left Radial] Pulse Rhythm [Left Radial] Pulse Strength [Left Radial] Respiratory Rate 18 16 Respiratory Effort / Characteristics Non-Labored Spontaneous Non-Labored Spontaneous Respiratory Depth Normal Normal Respiratory Pattern Regular Regular Blood Pressure 163/93 H Blood Pressure [Left Arm] 195/111 H Blood Pressure Mean 116 Blood Pressure Mean [Left Arm] 139 Blood Pressure Position [Left Arm] Lying Pulse Oximetry 99 99 Oxygen Delivery Method Room Air Room Air Sepsis Recent Fever Within 48 Hours No Sepsis New/Unexplained Change in Mental Status No Sepsis Action Taken by Nursing No Action Required 11/18/23 00:45 11/18/23 01:32 11/18/23 01:39 Temperature Temperature Source Pulse Rate 81 Pulse Rate [Left Radial] 95 H 88 Pulse Rhythm [Left Radial] Regular Regular Pulse Strength [Left Radial] Normal Normal Respiratory Rate 16 16 Respiratory Effort / Characteristics Non-Labored Spontaneous Non-Labored Spontaneous Respiratory Depth Normal Normal Respiratory Pattern Regular Blood Pressure 142/100 H Blood Pressure [Left Arm] 164/82 H 142/100 H Blood Pressure Mean Blood Pressure Mean [Left Arm] 109 114 Blood Pressure Position [Left Arm] Pulse Oximetry 98 Oxygen Delivery Method Room Air Room Air Sepsis Recent Fever Within 48 Hours Sepsis New/Unexplained Change in Mental Status Sepsis Action Taken by Nursing 11/18/23 01:50 Temperature Temperature Source Pulse Rate 78 Pulse Rate [Left Radial] Pulse Rhythm [Left Radial] Pulse Strength [Left Radial] Respiratory Rate Respiratory Effort / Characteristics Respiratory Depth Respiratory Pattern Blood Pressure 137/83 Blood Pressure [Left Arm] Blood Pressure Mean Blood Pressure Mean [Left Arm] Blood Pressure Position [Left Arm] Pulse Oximetry Oxygen Delivery Method Sepsis Recent Fever Within 48 Hours Sepsis New/Unexplained Change in Mental Status Sepsis Action Taken by Nursing Laboratory Data 11/17/23 23:15 11/17/23 23:15 Lab Results 11/17/23 11/18/23 Range/Units 23:15 00:00 WBC 10.37 (4.8-10.8) K/ul RBC 5.00 (4.20-5.40) M/uL Hgb 15.7 (12.0-16.0) g/dl Hct 46.8 (37.0-47.0) % MCV 93.6 (80.0-100.0) fL MCH 31.4 (25.0-34.0) pg MCHC 33.5 (32.0-36.0) g/dL RDW Std Deviation 42.9 (36.4-46.3) fL RDW Coeff of Josephine 12.4 (11.5-14.5) % Plt Count 96 L (130-400) K/uL MPV 11.3 (9.4-12.4) fL Immature Gran % (Auto) 0.5 % Neut % (Auto) 85.8 % Lymph % (Auto) 6.9 % [place] % (Auto) 6.1 % Eos % (Auto) 0.2 % Baso % (Auto) 0.5 % Neut # (Auto) 8.90 H (1.40-6.50) K/uL Lymph # (Auto) 0.72 L (1.20-3.40) K/uL [place] # (Auto) 0.63 H (0.11-0.59) K/uL Eos # (Auto) 0.02 (0.00-0.50) K/uL Baso # (Auto) 0.05 (0.00-0.20) K/uL Immature Gran # (Auto) 0.05 (0.01-0.20) K/uL Platelet Estimate Decreased L (Normal) Sodium 135 L (136-145) mmol/L Potassium 4.2 (3.5-5.1) mmol/L Chloride 102 (98-107) mmol/L Carbon Dioxide 25 (21-32) mmol/L Anion Gap 8 (3-11) BUN 17 (6-23) mg/dl Creatinine 0.91 (0.6-1.2) mg/dl Est Cr Clr Drug Dosing 87.5 ml/min Est GFR ( Amer) 84.1 ml/min Est GFR (Non-Af Amer) 72.5 ml/min BUN/Creatinine Ratio 18.7 (10-20) Glucose 195 H (70-99(Fasting)) mg/dl Calcium 9.3 (8.6-10.3) mg/dl Total Bilirubin 0.6 (0.2-1.0) mg/dl AST 23 (13-39) U/L ALT 32 (7-52) U/L Alkaline Phosphatase 148 H (34-104) U/L Total Protein 7.1 (6.0-8.3) gm/dl Albumin 4.2 (3.4-5.0) gm/dl Globulin 2.9 (2.5-4.0) gm/dl Albumin/Globulin Ratio 1.4 (0.9-2) Urine Color Dark Yellow Urine Appearance Turbid A (Clear) Urine pH 5.0 (4.5-7.5) Ur Specific [place] 1.034 H (1.000-1.030) Urine Protein Trace H (Negative) Urine Glucose (UA) Trace H (Negative) Urine Ketones Trace H (Negative) Urine Blood 3+ H (Negative) Urine Nitrite Negative (Negative) Urine Bilirubin Negative (Negative) Urine Urobilinogen Negative (Negative) Ur Leukocyte Esterase Trace H (Negative) Urine WBC (Auto) 6-10 H (0-5) /hpf Urine RBC (Auto) >20 H (0-2) /hpf U Hyaline Cast (Auto) 0-2 (0-2) /lpf U Epithel Cells (Auto) 6-10 H (0-2) /hpf Urine Bacteria (Auto) 1+ H (None Seen) Administered Medications Hydromorphone HCl (Hydromorphone Inj 0.5 Mg/0.5 Ml Syr) 0.5 mg IV Q4H PRN PRN Reason: Pain Stop: 12/02/23 03:35 Last Admin: 11/18/23 04:11 Dose: 0.5 mg Documented By: JACE Sodium Chloride (Nss) 1,000 mls @ 80 mls/hr IV .[id number] STA Stop: 11/18/23 15:20 Last Admin: 11/18/23 03:39 Dose: 80 mls/hr Documented By: JACE Discontinued Medications Hydromorphone HCl (Hydromorphone Inj 0.5 Mg/0.5 Ml Syr) 0.5 mg IV NOW STA Stop: 11/17/23 23:28 Last Admin: 11/17/23 23:41 Dose: 0.5 mg Documented By: JACE Hydromorphone HCl (Hydromorphone Inj 0.5 Mg/0.5 Ml Syr) 0.5 mg IV NOW STA Stop: 11/18/23 00:22 Last Admin: 11/18/23 00:44 Dose: 0.5 mg Documented By: JACE Acetaminophen (Ofirmev) 1,000 mg in 100 mls @ 400 mls/hr IV NOW STA Stop: 11/17/23 23:41 Last Infusion: 11/18/23 00:40 Dose: Infused Documented By: Admin: 11/17/23 23:58 Dose: 400 mls/hr Documented By: JACE Sodium Chloride (Nss) 1,000 mls @ 999 mls/hr IV .Q1H1M ONE Stop: 11/18/23 00:27 Last Infusion: 11/18/23 01:42 Dose: Infused Documented By: Admin: 11/17/23 23:35 Dose: 999 mls/hr Documented By: JACE Famotidine (Pepcid 20mg Iv Push) 20 mg in 5 mls @ 2.5 mls/min IV NOW STA Stop: 11/18/23 00:31 Last Admin: 11/18/23 00:43 Dose: 2.5 mls/min Documented By: JACE Insulin Aspart (Insulin Aspart Per Unit Charge) 0 units SC ONE STA Stop: 11/18/23 03:51 Last Admin: 11/18/23 04:30 Dose: Not Given Documented By: JACE Co-signed By: HOSSEIN Insulin Glargine (Lantus Per Unit Charge) 5 units SQ NOW STA Stop: 11/18/23 03:42 Last Admin: 11/18/23 04:30 Dose: Not Given Documented By: JACE Metoprolol Tartrate (Metoprolol Tartrate 1 Mg/Ml Vial) 2.5 mg IV NOW STA Stop: 11/18/23 01:10 Last Admin: 11/18/23 01:32 Dose: 2.5 mg Documented By: JACE Ondansetron HCl (Ondansetron Inj 2 Mg/Ml 2 Ml Vial) 4 mg IV NOW STA Stop: 11/18/23 00:31 Last Admin: 11/18/23 00:43 Dose: 4 mg Documented By: JACE Tamsulosin HCl (Tamsulosin Hcl 0.4 Mg Cap) 0.4 mg PO NOW STA Stop: 11/18/23 01:22 Last Admin: 11/18/23 01:32 Dose: 0.4 mg Documented By: JACE Discharge Plan Visit Data Chief Complaint: Kidney Stone Stated Complaint: KIDNEY STONE, VOMITING ED Provider: Stephanie Castro Discharge Problem: Right sided abdominal pain, Ureterolithiasis Patient Disposition: Admitted As Inpatient
[2023-11-17] MEDS: SODIUM CHLORIDE 0.9% 1,000 ML IV ONE (23:35)
[2023-11-17] MEDS: HYDROmorphone INJ 0.5 MG/0.5 ML SYR IV STA (23:41)
[2023-11-17 23:48] LABS: Albumin Globulin Ratio 1.4 (0.9-2); Albumin Level 4.2 gm/dl (3.4-5.0); BUN Creatinine Ratio 18.7 (10-20); Bilirubin,Total 0.6 mg/dl (0.2-1.0); Calcium 9.3 mg/dl (8.6-10.3); Creatinine Clr Calc Pharmacy 87.5 ml/min; Est GFR (African American) 84.1 ml/min; Est GFR (Non-African American) 72.5 ml/min; Globulin 2.9 gm/dl (2.5-4.0); Potassium 4.2 mmol/L (3.5-5.1); Total Protein 7.1 gm/dl (6.0-8.3)
[2023-11-17] MEDS: ACETAMINOPHEN 1,000 MG/100 ML VIAL IV STA (23:58)
[2023-11-18] LABS: Basophils # (auto) 0.05 K/uL (0.00-0.20); Basophils % (auto) 0.5 %; Eosinophils # (auto) 0.02 K/uL (0.00-0.50); Eosinophils % (auto) 0.2 %; Hematocrit (blood only) 46.8 % (37.0-47.0); Hemoglobin 15.7 g/dl (12.0-16.0); Immature Granulocytes # (auto) 0.05 K/uL (0.01-0.20); Immature Granulocytes % (auto) 0.5 %; Lymphocytes # (auto) 0.72 K/uL (1.20-3.40); Lymphocytes % (auto) 6.9 %; Mean Corpuscular Hemoglobin 31.4 pg (25.0-34.0); Mean Corpuscular Hgb Conc 33.5 g/dL (32.0-36.0); Mean Corpuscular Volume 93.6 fL (80.0-100.0); Mean Platelet Volume 11.3 fL (9.4-12.4); Monocytes # (auto) 0.63 K/uL (0.11-0.59); Monocytes % (auto) 6.1 %; Neutrophils % (auto) 85.8 %; Platelet Count 96 K/uL (130-400); Platelet Estimate Decreased (Normal); RDW Coefficient of Variation 12.4 % (11.5-14.5); RDW Standard Deviation 42.9 fL (36.4-46.3); White Blood Count 10.37 K/ul (4.8-10.8)
[2023-11-18] MEDS: FAMOTIDINE 20MG IV PUSH 20 MG/5 ML SYR IV STA (00:43)
[2023-11-18] MEDS: ONDANSETRON INJ 2 MG/ML 2 ML VIAL IV STA (00:43)
[2023-11-18] MEDS: HYDROmorphone INJ 0.5 MG/0.5 ML SYR IV STA (00:44)
[2023-11-18 01:09] LABS: Appearance Urine Turbid (Clear); Bacteria Urine Automated 1+ (None Seen); Bilirubin Urine Negative (Negative); Blood Urine 3+ (Negative); Cast Urine Automated 0-2 /lpf (0-2); Color Urine Dark Yellow; Glucose Urine UA Trace (Negative); Ketones Urine Trace (Negative); Leukocyte Esterase Urine Trace (Negative); Nitrite Urine Negative (Negative); Protein Urine Trace (Negative); RBC Urine Automated >20 /hpf (0-2); Specific Gravity Urine 1.034 (1.000-1.030); Urobilinogen Urine Negative (Negative)
[2023-11-18] MEDS: METOPROLOL TARTRATE 1 MG/ML VIAL IV STA (01:32)
[2023-11-18] MEDS: TAMSULOSIN HCL 0.4 MG CAP PO STA (01:32)
[2023-11-18] MEDS ORDERED: oxyCODONE HCL IR 5 MG TAB (IMMEDIATE RELEASE) PO PRN (02:41)
--- NOTE | 2023-11-18 03:20 | History & Physical Report ---
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 status, ISS BG goal 1 10-1 40 Outpatient GI consult for cirrhosis workup Nicotine patch as needed DVT prophylaxis. SCDs RE thrombocytopenia Full code Text document was generated using [employer] voice recognition software. It may contain grammatical or spelling errors. Kindly contact undersigned for clarification of any documentation item in question. History of Present Illness Chief Complaint: Kidney stone pain Primary Care Provider: Layne Emanuel PA-C History obtained from patient and records. Medical history significant for hypertension, hyperlipidemia, urolithiasis, DM2 on oral medications with ISS at home, breast cancer status post surgery/chemoradiation on letrozole, history of BRCA gene mutation, chronic thrombocytopenia, chronic pain, urolithiasis, ongoing tobacco abuse. Last confinement June 2022 under general surgery service for bilateral mastectomy for breast cancer. 1 day history of achy right-sided abdominal/flank pain with nausea vomiting symptoms reminiscent of kidney stone pain from 5 years ago during a trip in [place]. Spontaneous passage of stone at [place] emergency room. No headache, no chest pain, no SOB, no hematuria. Patient seen at ER yesterday afternoon. CT abdomen pelvis showed 1. Moderate right-sided hydroureteronephrosis secondary to an obstructing 4 mm calculus of the ureterovesicular junction. 2. Nonobstructing left nephrolithiasis. 3. Cirrhosis with hepatic steatosis. Patient discharged home on Flomax and antibiotic course. Patient returned to ER due to worsening symptoms. SBP 190s upon arrival at the ER. Medical History as above Surgical History : Bilateral mastectomy, breast biopsy, vascular procedure Family History : Throat cancer, breast cancer, brain tumor Personal/Social history : Half pack daily, no EtOH intake, disabled Allergies Allergy/AdvReac Type Severity Reaction Status Date / Time morphine Allergy Severe Anaphylaxis Verified 11/18/23 02:13 metformin Allergy Mild nausea/vomi Verified 11/18/23 02:13 ting sulfamethoxazole AdvReac burning Verified 11/18/23 02:13 [From Bactrim] sensation internally trimethoprim [From Bactrim] AdvReac Burning Verified 11/18/23 02:13 sensation internally Home Medications Medication Instructions Recorded Confirmed Type ondansetron HCl 8 mg tablet 8 mg PO Q12H PRN Nausea 08/10/20 11/18/23 History pravastatin 20 mg tablet 20 mg PO QPM 08/10/20 11/18/23 History dulaglutide 4.5 mg/0.5 mL 4.5 mg (0.5 mL) subcut WK #6 mL 08/02/21 11/18/23 Rx subcutaneous pen injector insulin aspart U-100 100 unit/mL 1 sliding scale dose subcut UD PRN 07/14/22 11/18/23 History (3 mL) subcutaneous pen (Novolog Hyperglycemia FlexPen U-100 Insulin aspart) magnesium 250 mg tablet 500 mg PO HS 07/14/22 11/18/23 History albuterol sulfate 90 mcg/actuation 1 puff inhalation QID PRN 08/03/22 11/18/23 History aerosol inhaler Shortness Of Breath empagliflozin 10 mg tablet 10 mg PO DAILY 08/29/22 11/18/23 History letrozole 2.5 mg tablet 2.5 mg PO QAM 09/05/22 11/18/23 History omeprazole 20 mg capsule,delayed 20 mg PO QPM #90 caps 02/26/23 11/18/23 Rx release mupirocin calcium 2 % topical cream 1 applic topical TID PRN Radiation 06/15/23 11/18/23 History dermatitis ciprofloxacin HCl 500 mg tablet 500 mg PO BID #14 tabs 11/17/23 11/18/23 Rx (Cipro) hydrocodone 5 mg-acetaminophen 325 1 tab PO Q6H PRN pain #20 tabs 11/17/23 11/18/23 Rx mg tablet tamsulosin 0.4 mg capsule (Flomax) 0.4 mg PO HS #7 caps 11/17/23 11/18/23 Rx azelastine 137 mcg (0.1 %) nasal 1 spray intranasal AMHS 11/18/23 11/18/23 History spray baclofen 10 mg tablet 10 mg PO HS 11/18/23 11/18/23 History ipratropium 20 mcg-albuterol 100 1 puff inhalation UD 11/18/23 11/18/23 History mcg/actuation mist for inhalation (Combivent Respimat) oxycodone 30 mg tablet 30 mg PO Q4H PRN Pain 11/18/23 11/18/23 History Past Med/Surg History Problem List (Updated 11/18/23 @ 11:38 by Ben Cuellar MD) Obstructive uropathy Ureterolithiasis (Acute) Right sided abdominal pain (Acute) UTI (urinary tract infection) (Acute) Kidney calculus (Acute) Kidney stone Epigastric pain Chest wall pain Headache Radiation burn Burn Malignant neoplasm of upper-outer quadrant of right breast in female, estrogen receptor positive (Chronic 01/05/22) Non-healing surgical wound Lumbar facet joint pain Obstructive sleep apnea Treated with CPAP, scheduled with Sleep [facility] [place] Diabetes type 2, controlled (~2012) Abnormal liver enzymes Tobacco use Elevated alkaline phosphatase level Dysphagia Thyroid nodule Chronic sinusitis of both maxillary sinuses Infiltrating duct adenocarcinoma Estrogen receptor positive status (ER+) 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 Infiltrating ductal carcinoma of right breast Tachycardia Thrombocytopenia (~2012) HTN (hypertension) Left ventricular hypertrophy due to hypertensive disease Hyperlipidemia GERD (gastroesophageal reflux disease) Chronic nausea Opioid dependence Lumbago Bilateral sacroiliitis Leg length discrepancy RLE 0.8cm short Medical History History of kidney stones NO SURGERY Thyroid nodule NEEDS REPEAT BIOPSY/BENIGN Follows with [facility] ENT Breast cancer DX 12/2021>RT BREAST + LYMPH NODE (RT ARM RESTRICTION) FINISHED CHEMO 6 WEEKS AGO/NO RADIATION Neuropathy Restless leg syndrome Seasonal allergies Sleep apnea cpap Diabetes IDDM Surgical History Status post debridement (08/10/22) Right Mastectomy Wound Debridement and Washout(Right) Dr. Baltazar Rodriguez Hx of bilateral mastectomy (07/17/22) + RT sentinel lymph node bx Dr. Baltazar Rodriguez History of vascular access device POWER PORT PER CARD H/O laparoscopy H/O breast biopsy (01/05/22) [place] teeth removed S/P colonoscopy History of esophageal dilatation (~2017) History of esophagogastroduodenoscopy (EGD) (~2017) Hx of section X 1 H/O shoulder surgery (~1996) Left H/O sinus surgery Family History Aunt Breast cancer Mother Diabetes Heart disease Hypertension Father Diabetes Hypertension Brother Hypertension Sister Hypertension Unknown Breast cancer Daughter No problems noted. 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); Do You Dip or Chew Tobacco: No; Hx Alcohol Use: No Hx Substance Use: No Preferred Language: Syriac Communication Ability: Effective Visual Impairment: No Limitations Hearing Ability: Normal Fixed Income Portfolio Manager Required: No Beliefs That Will Affect Care: None marital status: marital status details: with Current Living Situation: Spouse current occupational status: disabled How many Children do You have: 1 How many Children do You have Comment: Concha Pantoja Other Information That Helps Us Care for You: No Feels Safe at Home: Yes Safety Concerns: Feels Safe At This Time Childhood Exposure to Second-Hand Smoke: No Diet: diabetic caffeine: Yes (coffee) during the past year weight has: decreased > 10 lbs Dental Care, Regularly: Yes Physical Activity Frequency: 5-6 Times per Week Seatbelt Use: always Sunscreen Use: Yes Assistive Devices: CPAP Review of Systems Review of Systems: As per HPI, all other systems reviewed and negative Physical Exam Physical Exam: GENERAL: Comfortable, slightly anxious, obese, pleasant, no respiratory distress SKIN: Normal color, warm HEENT: [place] palpebral conjunctivae, no ptosis, dry buccal mucosa NECK : Supple, no tenderness CHEST : CTA, no tenderness HEART : RRR, no obvious murmurs ABDOMEN: Some distention, right-sided abdominal tenderness EXTREMITIES : Minimal LE swelling, no LE tenderness, no other conspicuous deformities noted NEUROLOGIC : Coherent, no facial asymmetry, no other gross focality Results & Data Results & Data Vital Signs (Past 12 Hours) Vital Signs Temp Pulse Pulse Resp BP BP Pulse Ox 11/18/23 01:50 78 137/83 11/18/23 01:39 88 16 142/100 H 11/18/23 01:32 81 142/100 H 11/18/23 00:45 95 H 16 164/82 H 98 11/17/23 23:18 82 11/17/23 23:15 16 195/111 H 99 11/17/23 22:29 36.6 C 93 H 18 163/93 H 99 O2 Del Method 11/18/23 01:50 11/18/23 01:39 Room Air 11/18/23 01:32 11/18/23 00:45 Room Air 11/17/23 23:18 11/17/23 23:15 Room Air 11/17/23 22:29 Room Air Laboratory Results Laboratory Results WBC 10.37 K/ul (4.8-10.8) 11/17/23 23:15 RBC 5.00 M/uL (4.20-5.40) 11/17/23 23:15 Hgb 15.7 g/dl (12.0-16.0) 11/17/23 23:15 Hct 46.8 % (37.0-47.0) 11/17/23 23:15 MCV 93.6 fL (80.0-100.0) 11/17/23 23:15 MCH 31.4 pg (25.0-34.0) 11/17/23 23:15 MCHC 33.5 g/dL (32.0-36.0) 11/17/23 23:15 RDW Std Deviation 42.9 fL (36.4-46.3) 11/17/23 23:15 RDW Coeff of Josephine 12.4 % (11.5-14.5) 11/17/23 23:15 Plt Count 96 K/uL (130-400) L 11/17/23 23:15 MPV 11.3 fL (9.4-12.4) 11/17/23 23:15 Immature Gran % (Auto) 0.5 % 11/17/23 23:15 Neut % (Auto) 85.8 % 11/17/23 23:15 Lymph % (Auto) 6.9 % 11/17/23 23:15 [place] % (Auto) 6.1 % 11/17/23 23:15 Eos % (Auto) 0.2 % 11/17/23 23:15 Baso % (Auto) 0.5 % 11/17/23 23:15 Neut # (Auto) 8.90 K/uL (1.40-6.50) H 11/17/23 23:15 Lymph # (Auto) 0.72 K/uL (1.20-3.40) L 11/17/23 23:15 [place] # (Auto) 0.63 K/uL (0.11-0.59) H 11/17/23 23:15 Eos # (Auto) 0.02 K/uL (0.00-0.50) 11/17/23 23:15 Baso # (Auto) 0.05 K/uL (0.00-0.20) 11/17/23 23:15 Immature Gran # (Auto) 0.05 K/uL (0.01-0.20) 11/17/23 23:15 Platelet Estimate Decreased (Normal) L 11/17/23 23:15 Sodium 135 mmol/L (136-145) L 11/17/23 23:15 Potassium 4.2 mmol/L (3.5-5.1) 11/17/23 23:15 Chloride 102 mmol/L (98-107) 11/17/23 23:15 Carbon Dioxide 25 mmol/L (21-32) 11/17/23 23:15 Anion Gap 8 (3-11) 11/17/23 23:15 BUN 17 mg/dl (6-23) 11/17/23 23:15 Creatinine 0.91 mg/dl (0.6-1.2) 11/17/23 23:15 Est Cr Clr Drug Dosing 87.5 ml/min 11/17/23 23:15 Est GFR ( Amer) 84.1 ml/min 11/17/23 23:15 Est GFR (Non-Af Amer) 72.5 ml/min 11/17/23 23:15 BUN/Creatinine Ratio 18.7 (10-20) 11/17/23 23:15 Glucose 195 mg/dl (70-99(Fasting)) H 11/17/23 23:15 Calcium 9.3 mg/dl (8.6-10.3) 11/17/23 23:15 Total Bilirubin 0.6 mg/dl (0.2-1.0) 11/17/23 23:15 AST 23 U/L (13-39) 11/17/23 23:15 ALT 32 U/L (7-52) 11/17/23 23:15 Alkaline Phosphatase 148 U/L (34-104) H 11/17/23 23:15 Total Protein 7.1 gm/dl (6.0-8.3) 11/17/23 23:15 Albumin 4.2 gm/dl (3.4-5.0) 11/17/23 23:15 Globulin 2.9 gm/dl (2.5-4.0) 11/17/23 23:15 Albumin/Globulin Ratio 1.4 (0.9-2) 11/17/23 23:15 Urine Color Dark Yellow 11/18/23 00:00 Urine Appearance Turbid (Clear) A 11/18/23 00:00 Urine pH 5.0 (4.5-7.5) 11/18/23 00:00 Ur Specific [place] 1.034 (1.000-1.030) H 11/18/23 00:00 Urine Protein Trace (Negative) H 11/18/23 00:00 Urine Glucose (UA) Trace (Negative) H 11/18/23 00:00 Urine Ketones Trace (Negative) H 11/18/23 00:00 Urine Blood 3+ (Negative) H 11/18/23 00:00 Urine Nitrite Negative (Negative) 11/18/23 00:00 Urine Bilirubin Negative (Negative) 11/18/23 00:00 Urine Urobilinogen Negative (Negative) 11/18/23 00:00 Ur Leukocyte Esterase Trace (Negative) H 11/18/23 00:00 Urine WBC (Auto) 6-10 /hpf (0-5) H 11/18/23 00:00 Urine RBC (Auto) >20 /hpf (0-2) H 11/18/23 00:00 U Hyaline Cast (Auto) 0-2 /lpf (0-2) 11/18/23 00:00 U Epithel Cells (Auto) 6-10 /hpf (0-2) H 11/18/23 00:00 Urine Bacteria (Auto) 1+ (None Seen) H 11/18/23 00:00
[2023-11-18] MEDS ORDERED: LORazepam 0.5 MG TAB PO PRN (03:38)
[2023-11-18] MEDS: SODIUM CHLORIDE 0.9% 1,000 ML IV STA (03:39)
[2023-11-18] MEDS ORDERED: GLUCOSE 40% GEL 15 GM TUBE PO PRN (03:41)
[2023-11-18] MEDS ORDERED: DEXTROSE 50% 50 ML SYRINGE IV PRN (03:41)
[2023-11-18] MEDS ORDERED: GLUCAGON FOR INJ 1 MG VIAL SQ PRN (03:41)
[2023-11-18] MEDS ORDERED: CARBOHYDRATES FOR HYPOGLYCEMIA PO PRN (03:41)
[2023-11-18] MEDS ORDERED: GLUCOSE 10 TAB/TUBE PO PRN (03:41)
[2023-11-18] MEDS: HYDROmorphone INJ 0.5 MG/0.5 ML SYR IV PRN (04:11)
[2023-11-18] MEDS: INSULIN ASPART PER UNIT CHARGE SC STA (04:30)
[2023-11-18] MEDS: LANTUS PER UNIT CHARGE SQ STA (04:30)
[2023-11-18] MEDS ORDERED: IPRATROPIUM BROMIDE/ALBUTEROL respimat INH INH SCH (05:00)
--- NOTE | 2023-11-18 05:30 | Urology Consultation ---
Date of Consultation November 18, 2023 Assessment & Plan (1) Ureterolithiasis: The patient has been admitted on the hospitalist service. From a urologic perspective we recommend the following: Provide analgesics Provide antiemetics The patient's urinalysis is suggestive of urinary tract infection. A urine culture has been sent. Would recommend maintaining the patient on antibiotics until urine culture is returnedthis was discussed with the hospitalist service Continue hydration with IV fluids Continue Flomax for expulsive therapy Maintain n.p.o. status for the present time At the present time the patient is normotensive without tachycardia. Although she reports a fever at home she has been afebrile since since her presentation to the emergency department. She does not have leukocytosis or acute kidney injury. The patient be reevaluated in the morning of 11/10/2023 to see if c ystoscopic intervention is required Additional recommendations be forthcoming based on her clinical course as unfolds Supervising Physician Co-Signing Physician Notes Saw patient personally. Recommended cystoscopy with right retrograde pyelogram and right ureteral stent placement due to second visit to hospital in 24 hours and UA concerning for infection. Consent obtained. Patient marked. History of Present Illness Reason for Consultation: Kidney stone Attending Physician: Gregory Choudhary MD History of Present Illness This is a 53-year-old female who was seen in the emergency department yesterday secondary to a kidney stone. The patient notes that she had right flank pain with some radiation to her abdomen. In the emergency department on 11/17/2023. At this time she had a CT scan of the abdomen and pelvis that showed she had moderate hydronephrosis secondary to an obstructing kidney stone at the right ureterovesical junction measuring approximately 4 mm. Labs at that time included CBC were white blood cell count, hemoglobin, and hematocrit were normal. Her platelet count is 96,000. Chemistry profile showed sodium was 135 with a normal potassium. Her BUN and creatinine were also normal. A urinalysis showed turbid urine. The specimen was negative for nitrites and had trace leukocyte Estrace and 21-50 white blood cells per high-power field. There is 4+ bacteria seen on the study. The patient was discharged home with antibiotics in the form of Cipro. The patient notes that since returning home she had persistent right flank pain with radiation to her abdomen as well as nausea and vomiting. The patient notes occasional chills and reported a fever as high as 101. She denies any dysuria or hematuria. She does note that she has had a kidney stone several years ago but was able to successfully pass it on her own. Since return to the emergency department the patient has had a repeat urinalysis that shows turbid urine which is negative for nitrites. This again shows trace leukocyte Estrace and has 6-10 white blood cells per high-power field. There is 1+ bacteria noted on the study. Allergies Allergy/AdvReac Type Severity Reaction Status Date / Time morphine Allergy Severe Anaphylaxis Verified 11/18/23 02:13 metformin Allergy Mild nausea/vomi Verified 11/18/23 02:13 ting sulfamethoxazole AdvReac burning Verified 11/18/23 02:13 [From Bactrim] sensation internally trimethoprim [From Bactrim] AdvReac Burning Verified 11/18/23 02:13 sensation internally Home Medications Medication Instructions Recorded Confirmed Type ondansetron HCl 8 mg tablet 8 mg PO Q12H PRN Nausea 08/10/20 11/18/23 History pravastatin 20 mg tablet 20 mg PO QPM 08/10/20 11/18/23 History dulaglutide 4.5 mg/0.5 mL 4.5 mg (0.5 mL) subcut WK #6 mL 08/02/21 11/18/23 Rx subcutaneous pen injector insulin aspart U-100 100 unit/mL 1 sliding scale dose subcut UD PRN 07/14/22 11/18/23 History (3 mL) subcutaneous pen (Novolog Hyperglycemia FlexPen U-100 Insulin aspart) magnesium 250 mg tablet 500 mg PO HS 07/14/22 11/18/23 History albuterol sulfate 90 mcg/actuation 1 puff inhalation QID PRN 08/03/22 11/18/23 History aerosol inhaler Shortness Of Breath empagliflozin 10 mg tablet 10 mg PO DAILY 08/29/22 11/18/23 History letrozole 2.5 mg tablet 2.5 mg PO QAM 09/05/22 11/18/23 History omeprazole 20 mg capsule,delayed 20 mg PO QPM #90 caps 02/26/23 11/18/23 Rx release mupirocin calcium 2 % topical cream 1 applic topical TID PRN Radiation 06/15/23 11/18/23 History dermatitis ciprofloxacin HCl 500 mg tablet 500 mg PO BID #14 tabs 11/17/23 11/18/23 Rx (Cipro) hydrocodone 5 mg-acetaminophen 325 1 tab PO Q6H PRN pain #20 tabs 11/17/23 11/18/23 Rx mg tablet tamsulosin 0.4 mg capsule (Flomax) 0.4 mg PO HS #7 caps 11/17/23 11/18/23 Rx azelastine 137 mcg (0.1 %) nasal 1 spray intranasal AMHS 11/18/23 11/18/23 History spray baclofen 10 mg tablet 10 mg PO HS 11/18/23 11/18/23 History ipratropium 20 mcg-albuterol 100 1 puff inhalation UD 11/18/23 11/18/23 History mcg/actuation mist for inhalation (Combivent Respimat) oxycodone 30 mg tablet 30 mg PO Q4H PRN Pain 11/18/23 11/18/23 History Patient History Medical History History of kidney stones NO SURGERY Thyroid nodule NEEDS REPEAT BIOPSY/BENIGN Follows with [facility] ENT Breast cancer DX 12/2021>RT BREAST + LYMPH NODE (RT ARM RESTRICTION) FINISHED CHEMO 6 WEEKS AGO/NO RADIATION Neuropathy Restless leg syndrome Seasonal allergies Sleep apnea cpap Diabetes IDDM Surgical History Status post debridement (08/10/22) Right Mastectomy Wound Debridement and Washout(Right) Dr. Baltazar Rodriguez Hx of bilateral mastectomy (07/17/22) + RT sentinel lymph node bx Dr. Baltazar Rodriguez History of vascular access device POWER PORT PER CARD H/O laparoscopy H/O breast biopsy (01/05/22) [place] teeth removed S/P colonoscopy History of esophageal dilatation (~2017) History of esophagogastroduodenoscopy (EGD) (~2017) Hx of section X 1 H/O shoulder surgery (~1996) Left H/O sinus surgery Family History Aunt Breast cancer Mother Diabetes Heart disease Hypertension Father Diabetes Hypertension Brother Hypertension Sister Hypertension Unknown Breast cancer Daughter No problems noted. 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); Do You Dip or Chew Tobacco: No; Hx Alcohol Use: No Hx Substance Use: No Preferred Language: Burundian Communication Ability: Effective Visual Impairment: No Limitations Hearing Ability: Normal Shopper'S Aide Required: No Beliefs That Will Affect Care: None marital status: marital status details: with Current Living Situation: Spouse current occupational status: disabled How many Children do You have: 1 How many Children do You have Comment: Concha Pantoja Other Information That Helps Us Care for You: No Feels Safe at Home: Yes Safety Concerns: Feels Safe At This Time Childhood Exposure to Second-Hand Smoke: No Diet: diabetic caffeine: Yes (coffee) during the past year weight has: decreased > 10 lbs Dental Care, Regularly: Yes Physical Activity Frequency: 5-6 Times per Week Seatbelt Use: always Sunscreen Use: Yes Assistive Devices: CPAP Review of Systems Review of Systems: All systems reviewed & are unremarkable except as noted in HPI & below Physical Exam 2 Constitutional: WD/WN, vitals as above Eyes: no conjunctival abnormality ENMT: Ears: no hearing impairment and no external ear abnormality Mouth: no oropharynx abnormality Neck: trachea midline Respiratory: normal respiratory effort; no respiratory distress and no labored breathing Cardiovascular: Rate/Rhythm: regular rate and regular rhythm Gastrointestinal (Abdomen): Abdomen is soft and nondistended. There is no pain with palpation Musculoskeletal: No calf tenderness Skin: no rashes Neurologic: moves all extremities Psychiatric: A+Ox3, euthymic affect Genitourinary: Slight CVA tenderness noted with percussion on the right. No CVA tenderness with percussion on the left Results & Data Vital Signs (Past 12 Hours) Vital Signs Temp Pulse Pulse Pulse Resp BP BP 11/18/23 05:10 11/18/23 05:10 36.8 C 71 16 117/76 11/18/23 04:19 72 16 114/72 11/18/23 03:37 77 11/18/23 03:34 84 16 131/73 11/18/23 01:50 78 137/83 11/18/23 01:39 88 16 142/100 H 11/18/23 01:32 81 142/100 H 11/18/23 00:45 95 H 16 164/82 H 11/17/23 23:18 82 11/17/23 23:15 16 195/111 H 11/17/23 22:29 36.6 C 93 H 18 163/93 H Pulse Ox O2 Del Method 11/18/23 05:10 Room Air 11/18/23 05:10 97 Room Air 11/18/23 04:19 95 Room Air 11/18/23 03:37 11/18/23 03:34 95 Room Air 11/18/23 01:50 11/18/23 01:39 Room Air 11/18/23 01:32 11/18/23 00:45 98 Room Air 11/17/23 23:18 11/17/23 23:15 99 Room Air 11/17/23 22:29 99 Room Air PG Care Time/CCT Total # of Minutes Spent Total Time Spent with Patient: Total time spent is greater than 50% in coordination of care (as documented) at patient's floor/unit and/or counseling patient: Coding Level of Care Code 39120 IN/OBS CONSULT LVL 5,80M Diagnoses Ureterolithiasis N20.1
[2023-11-18] MEDS: Albuterol HFA 8 GM Inhaler (Combivent Respimat P&T Subs) INH SCH (08:44)
[2023-11-18] MEDS: Ipratropium HFA Inhaler (Combivent Respimat P&T Subs) INH SCH (08:44)
[2023-11-18] MEDS: LETROZOLE 2.5 MG TAB PO SCH (09:40)
--- NOTE | 2023-11-18 10:40 | CT Scan Report ---
ABDOMEN AND PELVIS CT WITHOUT CONTRAST CT DOSE: 1479.25 mGy.cm HISTORY: Acute right-sided flank pain ff up urolithiasis TECHNIQUE: Multiaxial CT images of the abdomen and pelvis were performed without contrast. A dose lo wering technique was utilized adhering to the principles of ALARA. COMPARISON STUDY: 11/17/2023 FINDINGS: Postoperative changes compatible with bilateral mastectomy. The heart is mildly enlarged. P osttreatment related to scarring of the right middle lobe. There is no free air. The unenhanced splee n, pancreas and adrenal glands are unremarkable. Gallbladder is within normal limits. Mild fatty infi ltration of the liver with marginal nodularity. 2 mm nonobstructing calculus of the inferior pole lef t kidney. Moderate right-sided hydroureteronephrosis secondary to an obstructing 4 mm calculus of the right ureterovesicular junction. Decompressed bladder with wall thickening. Unremarkable uterus. Ath erosclerosis of the aorta. No lymphadenopathy No bowel obstruction or bowel wall thickening. Small du odenal diverticulum. Normal appendix. No acute fracture. IMPRESSION: 1. Moderate right-sided hydroureteronephrosis secondary to an obstructing 4 mm calculus of the ureter ovesicular junction, unchanged from the exam obtained less than 24 hours earlier. 2. Nonobstructing left nephrolithiasis. 3. Cirrhosis with hepatic steatosis. 4. Bilateral mastectomy. 5. Additional findings as above. ACT 112: Negative or not required by law. The above report was generated using voice recognition software. It may contain grammatical, syntax o r spelling errors. Electronically signed by: Demetri Fuller M.D. 11/18/2023 10:37 AM
[2023-11-18] MEDS: INSULIN ASPART PER UNIT CHARGE SC SCH (12:46)
[2023-11-18] MEDS: ACETAMINOPHEN 325 MG TAB PO PRN (12:53)
[2023-11-18] MEDS: cefTRIAXone SODIUM 2,000 MG/50 ML BAG IV SCH (15:01)
[2023-11-18] MEDS: oxyCODONE HCL IR 30 MG TAB (IMMEDIATE RELEASE) PO PRN (15:06)
--- NOTE | 2023-11-18 15:09 | Hospitalist Progress Note ---
Date of Service November 18, 2023 Assessment & Plan (1) Obstructive uropathy: Plan: Secondary to urolithiasis Right UVJ stoneWith moderate hydronephrosis Possible concomitant urinary tract infection Renal function stable Urine culture: Pending Repeat CT abdomen pelvis today revealing presence of right UVJ stone with moderate hydronephrosis N.p.o. postmidnight, possible cystoscopy stent placement tomorrow if there is an open OR slot, as per urology service Continue IV ceftriaxone Continue tamsulosin hypertension, initially elevated upon arrival at the ER -- Blood pressure improving Patient currently not on maintenance medications Thrombocytopenia Platelet 129, today 96 No signs of active bleeding Monitor closely hyperlipidemia on statin Rx DM2 on oral medications with ISS at home, suboptimal control as of recent hemoglobin A1c of 8.22 Aug 2023 breast cancer status post surgery/chemoradiation on letrozole/history of BRCA gene mutation Cirrhosis on imaging noted on previous CT done this year, 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 SCDs RE thrombocytopenia Full code plan of care discussed with patient in detail and at length all questions answered she is understanding, agreeable, comfortable with the plan of care Admission and Anticipated Discharge Date Admission Date: November 18, 2023 Subjective Follow-up for right UVJ stone, etc. Seen resting in bed, comfortable, not in distress States pain is better today Denies nausea vomiting, fevers or chills, hematuria No other new symptom Review of Systems Review of Systems: all noted and negative except for above Physical Exam Physical Exam: General- oriented x 3, not in distress, speaks in sentences with no effort or accessory muscle use Eyes- anicteric Neck- no JVD Lungs- clear breath sounds bilaterally, no rales/wheezes Heart- normal rate, regular rhythm; no murmurs Abdomen- normal bowel sounds, nondistended, soft, nontender Extremities- no pretibial edema, no calf tenderness Neuro- alert, oriented x 3; no gross focal neurologic deficits Skin- warm & dry Results & Data Results & Data Vital Signs (Past 12 Hours) Vital Signs Temp Pulse Pulse Pulse Resp BP Pulse Ox 11/18/23 08:45 74 16 96 11/18/23 05:10 11/18/23 05:10 36.8 C 71 16 117/76 97 11/18/23 04:19 72 16 114/72 95 11/18/23 03:37 77 11/18/23 03:34 84 16 131/73 95 O2 Del Method 11/18/23 08:45 Room Air 11/18/23 05:10 Room Air 11/18/23 05:10 Room Air 11/18/23 04:19 Room Air 11/18/23 03:37 11/18/23 03:34 Room Air all noted and reviewed including below
[2023-11-18] MEDS: diphenhydrAMINE Capsule 25 MG CAP PO PRN (15:26)
[2023-11-18 15:45] LABS: Basophils # (auto) 0.04 K/uL (0.00-0.20); Basophils % (auto) 0.6 %; Eosinophils # (auto) 0.07 K/uL (0.00-0.50); Eosinophils % (auto) 1.1 %; Hematocrit (blood only) 42.5 % (37.0-47.0); Hemoglobin 14.3 g/dl (12.0-16.0); Immature Granulocytes # (auto) 0.03 K/uL (0.01-0.20); Immature Granulocytes % (auto) 0.5 %; Lymphocytes # (auto) 1.05 K/uL (1.20-3.40); Mean Corpuscular Hgb Conc 33.6 g/dL (32.0-36.0); Mean Corpuscular Volume 95.1 fL (80.0-100.0); Mean Platelet Volume 10.5 fL (9.4-12.4); Monocytes # (auto) 0.56 K/uL (0.11-0.59); Monocytes % (auto) 8.5 %; Neutrophils # (auto) 4.83 K/uL (1.40-6.50); Neutrophils % (auto) 73.3 %; Platelet Count 94 K/uL (130-400); RDW Coefficient of Variation 12.4 % (11.5-14.5); RDW Standard Deviation 43.2 fL (36.4-46.3); Red Blood Count 4.47 M/uL (4.20-5.40); White Blood Count 6.58 K/ul (4.8-10.8)
[2023-11-18] MEDS: PRAVASTATIN SOD 20 MG TAB PO SCH (20:34)
[2023-11-18] MEDS: TAMSULOSIN HCL 0.4 MG CAP PO SCH (20:34)
[2023-11-18] MEDS: BACLOFEN 10 MG TAB PO SCH (20:34)
[2023-11-18] MEDS: PANTOprazole 40 MG TAB PO SCH (20:34)
[2023-11-18] MEDS: ALBUTEROL HFA 8 GM INHALER INH SCH (21:01)
[2023-11-18] MEDS: IPRATROPIUM BROMIDE HFA INHALER INH SCH (21:01)
[2023-11-18] MEDS: LANTUS PER UNIT CHARGE SQ SCH (22:18)
[2023-11-18] MEDS: PROMETHAZINE HCL 12.5 MG in SODIUM CHLORIDE 0.9% 50 ML IV PRN (22:22)
--- NOTE | 2023-11-19 08:36 | Urology Progress Note ---
Date of Service November 19, 2023 Assessment & Plan (1) Ureterolithiasis: Plan: Follow-up of right UVJ stone with hydronephrosis She is afebrile and hemodynamically stable No new labs at time of visit; no leukocytosis yesterday, renal function normal (11/16) Urine culture 11/16 with pinpoint growth reincubating, urine culture 11/17 pending Continue broad-spectrum antibiotics and narrow per sensitivity and when available CT imaging from yesterday revealed persistent right UVJ stone with moderate right hydro ureteronephrosis We reviewed and discussed CT imaging and options for stone management After discussion, she wishes to proceed with surgical intervention today Proceed to OR for cystoscopy, right ureteronephroscopy, right stent placement, and possible stone treatment Expected clinical course reviewed, all questions answered Keep NPO for procedure Continue with scheduled IV ceftriaxone preoperatively Continue to strain urine Attending note: Patient independently assessed, examined, interviewed, and evaluated. Patient had significant obstructing stone on imaging which was reviewed interpreted by myself. Had wanted to trial passage with time and hydration and supportive care. Did not have significant passage of stone and still having considerable pain discomfort. Agree with note as above. Patient's vitals and labs were all reviewed. Pertinent values in the HPI and plan section. Imaging was reviewed interpreted by myself. Agree with read. Vitals were reviewed. Discussed findings extensively with patient and family. Reviewed with nurse practitioner as well as consulting physicians/team. Patient's complicated medical and surgical history was reviewed and summarized above. Patient's surgical, medical, social, and family history were all reviewed with pertinent values as above. White count came back at 6.58. Creatinine today was 0.65. Patient's vitals were also reviewed which were all stable with no fever and satting at 97% on room air. Discussed patient's current diagnosis as well as concerns and issues. Reviewed different options moving forward. Discussed potential risks and benefits as well as possible options and concerns. Reviewed potential surgical options and interventions. Discussed potential issues and concerns related to intervention. Risk and benefits were discussed extensively with patient and any available family. Discussed potential risks related to anesthesia. Discussed risks of bleeding infection and injury. Specifically discussed options for treatment of stone. Distal stone in the ureter. Near the UO. Will plan to undergo treatment. Risks and benefits discussed at length for procedure. These include bleeding, infection, injury to surrounding tissues or organs, and risks associated with anesthesia. Patient states understanding and agrees to proceed. Will sign consent and schedule. Plan for cystoscopy with possible ureteroscopy and stone treatment and possible stent placement on tether Admission and Anticipated Discharge Date Admission Date: November 18, 2023 Subjective Patient seen and examined at bedside this morning She reports right flank pain has improved Denies stone passage Voiding spontaneously, no dysuria Denies nausea, vomiting, fever or chills Review of Systems Constitutional: as per Subjective / HPI Gastrointestinal: as per Subjective / HPI Genitourinary: as per Subjective / HPI Physical Exam Constitutional: well developed and well nourished; no acute distress Respiratory: normal respiratory effort; no respiratory distress and no labored breathing Gastrointestinal (Abdomen): Inspection/Auscultation: abdomen normal to inspection Musculoskeletal: Head/Neck/Chest: normocephalic Neurologic: moves all extremities and awake Psychiatric: Orientation: alert and oriented x 3 Results & Data Vital Signs (Past 12 Hours) Vital Signs Temp Pulse Resp BP Pulse Ox O2 Del Method 11/19/23 07:27 70 16 96 Room Air 11/19/23 07:18 36.7 C 84 16 118/77 97 Room Air PG Care Time/CCT Total # of Minutes Spent Total Time Spent with Patient: Total time spent is greater than 50% in coordination of care (as documented) at patient's floor/unit and/or counseling patient: Coding Level of Care Code 18198 SUB INP/OBS CARE 2/35MIN Diagnoses Ureterolithiasis N20.1
[2023-11-19 09:05] LABS: BUN Creatinine Ratio 13.8 (10-20); Calcium 8.8 mg/dl (8.6-10.3); Creatinine Clr Calc Pharmacy 123.6 ml/min; Est GFR (African American) 118.3 ml/min; Est GFR (Non-African American) 102.1 ml/min; Potassium 4.2 mmol/L (3.5-5.1)
[2023-11-19] MEDS ORDERED: fentaNYL citrate PF 100 MCG/2 ML VIAL ONE ×2 (11:21→15:49)
[2023-11-19] MEDS ORDERED: MIDAZOLAM HCL 1 MG/ML 2ML VIAL ONE ×2 (11:21→15:49)
[2023-11-19] MEDS ORDERED: PROPOFOL IV EMULSION 10 MG/ML 20 ML VIAL IV ONE ×2 (11:21→15:49)
[2023-11-19] MEDS ORDERED: ONDANSETRON INJ 2 MG/ML 2 ML VIAL ONE (11:21)
[2023-11-19] MEDS ORDERED: LIDOCAINE 2% 2 ML VIAL/AMP(20MG/ML) INFIL ONE ×2 (11:21→15:49)
[2023-11-19] MEDS: LACTATED RINGER'S 1,000 ML IV SCH (14:57)
--- NOTE | 2023-11-19 15:43 | Anesthesiology Consultation ---
Date of Service November 19, 2023 Assessment & Plan Chart Review Chart Review: Acceptable Risk for Surgery and Patient NOT seen in Pre Admission Testing Consults Requested none History Surgery Operation Date: 11/18/23 10:00 Proposed Procedures p Cystoscopy - Janusz Cazares MD Operation Date: 11/19/23 07:00 Proposed Procedures p Cystoscopy, Right Ureteroscopy, Possible Stone Treatment - Balatzar Padgett, Height/Weight Height: 5 ft 7 in Weight: 101 kg Allergies Allergy/AdvReac Type Severity Reaction Status Date / Time morphine Allergy Severe Anaphylaxis Verified 11/18/23 02:13 metformin Allergy Mild nausea/vomi Verified 11/18/23 02:13 ting sulfamethoxazole AdvReac burning Verified 11/18/23 02:13 [From Bactrim] sensation internally trimethoprim [From Bactrim] AdvReac Burning Verified 11/18/23 02:13 sensation internally Medications Home Medications Medication Instructions Recorded Confirmed Last Taken ondansetron HCl 8 mg tablet 8 mg PO Q12H PRN Nausea 08/10/20 11/18/23 08/07/22 22:00 pravastatin 20 mg tablet 20 mg PO QPM 08/10/20 11/18/23 08/09/22 22:00 dulaglutide 4.5 mg/0.5 mL 4.5 mg (0.5 mL) subcut WK #6 mL 08/02/21 11/18/23 08/06/22 07:00 subcutaneous pen injector insulin aspart U-100 100 unit/mL 1 sliding scale dose subcut UD PRN 07/14/22 11/18/23 08/03/22 07:00 (3 mL) subcutaneous pen (Novolog Hyperglycemia FlexPen U-100 Insulin aspart) magnesium 250 mg tablet 500 mg PO HS 07/14/22 11/18/23 08/09/22 22:00 albuterol sulfate 90 mcg/actuation 1 puff inhalation QID PRN 08/03/22 11/18/23 Unknown aerosol inhaler Shortness Of Breath empagliflozin 10 mg tablet 10 mg PO DAILY 08/29/22 11/18/23 Unknown letrozole 2.5 mg tablet 2.5 mg PO QAM 09/05/22 11/18/23 Unknown omeprazole 20 mg capsule,delayed 20 mg PO QPM #90 caps 02/26/23 11/18/23 Unknown release mupirocin calcium 2 % topical cream 1 applic topical TID PRN Radiation 06/15/23 11/18/23 Unknown dermatitis ciprofloxacin HCl 500 mg tablet 500 mg PO BID #14 tabs 11/17/23 11/18/23 Unknown (Cipro) hydrocodone 5 mg-acetaminophen 325 1 tab PO Q6H PRN pain #20 tabs 11/17/23 11/18/23 Unknown mg tablet tamsulosin 0.4 mg capsule (Flomax) 0.4 mg PO HS #7 caps 11/17/23 11/18/23 Unknown azelastine 137 mcg (0.1 %) nasal 1 spray intranasal AMHS 11/18/23 11/18/23 Unknown spray baclofen 10 mg tablet 10 mg PO HS 11/18/23 11/18/23 Unknown ipratropium 20 mcg-albuterol 100 1 puff inhalation UD 11/18/23 11/18/23 Unknown mcg/actuation mist for inhalation (Combivent Respimat) oxycodone 30 mg tablet 30 mg PO Q4H PRN Pain 11/18/23 11/18/23 Unknown Active Medications Generic Name Dose Route Start Last Admin Trade Name Freq PRN Reason Stop Dose Admin Acetaminophen 650 mg 11/18/23 02:41 11/18/23 12:53 Acetaminophen 325 Mg Tab PO 12/18/23 02:40 650 mg QID PRN Administration pain/fever Albuterol 1 puffs 11/18/23 19:00 11/19/23 07:27 Albuterol Hfa 8 Gm Inhaler INH 12/18/23 18:59 1 puffs BIDR ANISA Administration Protocol Baclofen 10 mg 11/18/23 21:00 11/18/23 20:34 Baclofen 10 Mg Tab PO 12/18/23 20:59 10 mg HS ANISA Administration Diphenhydramine HCl 25 mg 11/18/23 15:14 11/18/23 15:26 Diphenhydramine Capsule 25 Mg Cap PO 12/18/23 15:13 25 mg DAILY PRN Administration Itching Hydromorphone HCl 0.5 mg 11/18/23 03:36 11/19/23 09:05 Hydromorphone Inj 0.5 Mg/0.5 Ml Syr IV 12/02/23 03:35 0.5 mg Q4H PRN Administration Pain Promethazine HCl 12.5 mg/ 50.5 mls @ 202 mls/hr 11/18/23 02:41 11/18/23 22:56 Sodium Chloride IV 12/18/23 02:40 Infused Q6H PRN Infusion Nausea And Vomiting Ceftriaxone Sodium 2,000 mg in 50 mls @ 100 mls/hr 11/18/23 14:00 11/19/23 14:56 Rocephin IV 11/28/23 13:59 100 mls/hr Q24H ANISA Administration Lactated Ringer's 1,000 mls @ 15 mls/hr 11/19/23 15:00 11/19/23 14:57 Lr IV 12/19/23 14:59 15 mls/hr .Q24H ANISA Administration Insulin Aspart 0 units 11/18/23 11:30 11/19/23 13:28 Insulin Aspart Per Unit Charge SC 12/18/23 11:29 Not Given ACHS ANISA Insulin Glargine 5 units 11/18/23 21:00 11/18/23 22:18 Lantus Per Unit Charge SQ 12/18/23 20:59 5 units HS ANISA Administration Ipratropium [place] 1 puffs 11/18/23 19:00 11/19/23 07:27 Ipratropium [place] Hfa Inhaler INH 12/18/23 18:59 1 puffs BIDR ANISA Administration Protocol Letrozole 2.5 mg 11/18/23 09:00 11/19/23 08:49 Letrozole 2.5 Mg Tab PO 12/18/23 08:59 2.5 mg QAM ANISA Administration Oxycodone HCl 30 mg 11/18/23 03:36 11/19/23 13:43 Oxycodone Hcl Ir 30 Mg Tab (Immediate Release) PO 12/02/23 03:35 30 mg Q4H PRN Administration Pain Pantoprazole Sodium 40 mg 11/18/23 21:00 11/18/23 20:34 Pantoprazole 40 Mg Tab PO 12/18/23 20:59 40 mg QPM ANISA Administration Pravastatin Sodium 20 mg 11/18/23 21:00 11/18/23 20:34 Pravastatin Sod 20 Mg Tab PO 12/18/23 20:59 20 mg QPM ANISA Administration Tamsulosin HCl 0.4 mg 11/18/23 21:00 11/18/23 20:34 Tamsulosin Hcl 0.4 Mg Cap PO 12/18/23 20:59 0.4 mg HS ANISA Administration NPO Date Last Intake of Fluids: 11/18/23 Time Last Intake of Fluids: 21:00 Date Last Intake of Solids: 11/18/23 Time Last Intake of Solids: 17:00 Past Medical History Medical History History of kidney stones NO SURGERY Thyroid nodule NEEDS REPEAT BIOPSY/BENIGN Follows with [facility] Breast cancer DX 12/2021>RT BREAST + LYMPH NODE (RT ARM RESTRICTION) FINISHED CHEMO 6 WEEKS AGO/NO RADIATION Neuropathy Restless leg syndrome Seasonal allergies Sleep apnea cpap Diabetes IDDM Past Family History Family History Aunt Breast cancer Mother Diabetes Heart disease Hypertension Father Diabetes Hypertension Brother Hypertension Sister Hypertension Unknown Breast cancer Daughter No problems noted. Other No family history of adverse response to anesthesia No family history of bleeding disorder Denies family history of Ovarian cancer Prostate cancer Myocardial infarction Lung cancer Colorectal cancer Past Surgical History Surgical History Status post debridement (08/10/22) Right Mastectomy Wound Debridement and Washout(Right) Dr. Baltazar Rodriguez Hx of bilateral mastectomy (07/17/22) + RT sentinel lymph node bx Dr. Baltazar Rodriguez History of vascular access device POWER PORT PER CARD H/O laparoscopy H/O breast biopsy (01/05/22) [place] teeth removed S/P colonoscopy History of esophageal dilatation (~2017) History of esophagogastroduodenoscopy (EGD) (~2017) Hx of section X 1 H/O shoulder surgery (~1996) Left H/O sinus surgery Social History Smoking Status: Current every day smoker tobacco type: cigarettes Smoking cigarettes per day: half a pack Do You Dip or Chew Tobacco: No Hx Alcohol Use: No Hx Substance Use: No substance use type: does not use Review of Systems Constitutional: as per Subjective / HPI Gastrointestinal: as per Subjective / HPI Genitourinary (Female): as per Subjective / HPI Physical Exam Vital Signs Last Vital Signs Temp 36.7 C 11/19/23 14:39 Pulse 75 11/19/23 14:39 Resp 20 11/19/23 14:39 BP 139/85 07/29/24 14:39 Pulse Ox 97 11/19/23 14:39 O2 Del Method Room Air 11/19/23 14:39 Constitutional WD/WN, vitals as above well developed and well nourished; no acute distress Eyes no conjunctival abnormality ENMT Ears: no hearing impairment and no external ear abnormality Mouth: no oropharynx abnormality Neck trachea midline Respiratory normal respiratory effort; no respiratory distress and no labored breathing Cardiovascular Rate/Rhythm: regular rate and regular rhythm Gastrointestinal (Abdomen) Inspection/Auscultation: abdomen normal to inspection Musculoskeletal Head/Neck/Chest: normocephalic Skin no rashes Neurologic moves all extremities and awake Psychiatric A+Ox3, euthymic affect Orientation: alert and oriented x 3 Testing Laboratory Results 11/18/23 15:17 11/19/23 07:51 Urine Color Dark Yellow 11/18/23 00:00 Urine Appearance Turbid (Clear) A 11/18/23 00:00 Urine pH 5.0 (4.5-7.5) 11/18/23 00:00 Ur Specific [place] 1.034 (1.000-1.030) H 11/18/23 00:00 Urine Protein Trace (Negative) H 11/18/23 00:00 Urine Glucose (UA) Trace (Negative) H 11/18/23 00:00 Urine Ketones Trace (Negative) H 11/18/23 00:00 Urine Nitrite Negative (Negative) 11/18/23 00:00 Ur Leukocyte Esterase Trace (Negative) H 11/18/23 00:00 Urine WBC (Auto) 6-10 /hpf (0-5) H 11/18/23 00:00 Urine RBC (Auto) >20 /hpf (0-2) H 11/18/23 00:00 U Hyaline Cast (Auto) 0-2 /lpf (0-2) 11/18/23 00:00 U Epithel Cells (Auto) 6-10 /hpf (0-2) H 11/18/23 00:00 Urine Bacteria (Auto) 1+ (None Seen) H 11/18/23 00:00 11/18/23 00:00 Urine Culture - Preliminary Urine,Clean Catch No growth - Less than 1,000 colonies/mL, Final report to follow. 11/19/23 11/19/23 11/19/23 14:49 11:23 07:45 POC Glucose 104 H 110 H 112 H
[2023-11-19] MEDS ORDERED: ATROPINE SULFATE 0.1 MG/ML 10ML SYR IV PRN (15:50)
[2023-11-19] MEDS ORDERED: ONDANSETRON INJ 2 MG/ML 2 ML VIAL IV PRN (15:50)
[2023-11-19] MEDS ORDERED: ePHEDrine sulfate 50 MG/ML AMP IV PRN (15:50)
[2023-11-19] MEDS ORDERED: fentaNYL citrate PF 100 MCG/2 ML VIAL IV PRN (15:50)
[2023-11-19] MEDS: DIATRIZOATE MEGLUMINE 30% 100ML VIAL INSTIL PRN (16:44)
--- NOTE | 2023-11-19 16:50 | Operative Report ---
[facility] Post Operative Report Pre & Post Diagnosis Operation Date: 11/19/23 07:00 <No data on this case meets the specified criteria> I identified the patient and participated in the time-out.: Yes Procedure Operation Date: 11/19/23 07:00 Actual Procedures p Cystoscopy with Right Ureteroscopy, Stone Basket Treatment, ureteral dilation, retrograde pyelogram, and Stent Insertion-Right - Baltazar Padgett DO Surgeon Baltazar Padgett, II, DO Wood Setter None Estimated Blood Loss 1 Findings Consistent with Post-Op Diagnosis Stricture dilated. Stone removed. Specimens Stone Fragments - Right ureter Drains 6 Fr x 26 cm on TETHER Anesthesia Type General Complications none Disposition Disposition: Recovery Room Indications Patient with bothersome stones. Risks and benefits discussed at length. Description of Procedure Patient was consented and brought back to the operating room. Patient was placed under anesthesia in the supine position and moved to the dorsal lithotomy position. Patient was prepped and draped in the regular sterile fashion. A time out was completed. A 30degree Cystoscope was placed into the bladder and the entire bladder was examined. The UO's were identified. The UO was cannulized with a catheter and a retrograde pyelogram was completed. A wire was then placed. The Rigid ureteroscope was taken into the ureter. A stricture was noted. This was dilated. Proximal to this was significant dilation of the ureter. The stone was then identified. The zero tip basket was selected and the stone was grasped and removed and sent for analysis. The entire area was once again examined. The scope was advanced to the proximal ureter. No residual large fragments or areas of concern were noted. The scope was slowly removed with the wire left in place. Contrast was placed through the scope for a pyelogram to assist in stent placement. The entire ureter was examined as the scope was slowly removed. No obstructions or other areas of concern were noted. With the wire in place, a 6 Fr Double J stent was placed. It was confirmed with fluoroscopy. With the stent in place, the bladder was emptied. The stent was secured by the tether with a bandage. The scope was removed. The patient was cleaned, aroused from anesthesia, and transferred to the pacu in stable condition having tolerated the procedure well with no complications. I was present and participated in all aspects of the procedure. The patient will be monitored in the PACU until transferred. Patient can remove stent in approx 3-5 days by removing bandage and pulling tether until stent extracts. Followup in office in approx 6 weeks for re-assessment. I attest to the content of the Intraoperative Record and any orders documented therein. Any exceptions are noted below.
--- NOTE | 2023-11-19 17:15 | Anesthesiology Progress Note ---
Date of Service November 19, 2023 Anesthesia Post Procedure Vital Signs Vital Signs: Temp Pulse Pulse Resp BP Pulse Ox O2 Del Method 11/19/23 17:10 36.4 C L 73 11 L 140/87 96 Room Air 11/19/23 17:00 36.7 C 77 16 L 16 137/75 93 Room Air 11/19/23 16:53 36.7 C 76 16 L 16 143/73 H 96 Room Air 11/19/23 14:39 36.7 C 75 20 139/85 97 Room Air 11/19/23 07:27 70 16 96 Room Air 11/19/23 07:18 36.7 C 84 16 118/77 97 Room Air 11/18/23 19:40 36.6 C 75 18 151/84 H 98 Room Air Pain Intensity Right Flank: Pain Intensity: 7 Transfer of Care Handoff Completed per policy Notes Mental Status: alert / awake / arousable Patient Amnestic to Procedure: Yes Nausea / Vomiting: adequately controlled Pain: adequately controlled Airway Patency, RR, SpO2: stable & adequate BP & HR: stable & adequate Hydration State: stable & adequate Anesthetic Complications: no major complications apparent and Pt Satisfied with anesthetic care
--- NOTE | 2023-11-19 17:30 | Discharge Summary ---
Discharge Summary Date of Service November 19, 2023 delayed entry date of service noted above Principal Dx & Hospital Course #1 = Principal Diagnosis (1) Obstructive uropathy: Secondary to urolithiasis Right UVJ stoneWith moderate hydronephrosis Possible concomitant urinary tract infection Renal function stable Urine culture: no growth so far Repeat CT abdomen pelvis revealing presence of right UVJ stone with moderate hydronephrosis given IV Ceftriaxone 11/18 Cystoscopy with Right Ureteroscopy, Stone Basket Treatment, ureteral dilation, retrograde pyelogram, and Stent Insertion-Right - Baltazar Padgett, finish 5 days of Cefdinir ff up with Urologist in 1 week hypertension -- Blood pressure improving Patient currently not on maintenance medications Thrombocytopenia Platelet 129--> 96 --> 94 No signs of active bleeding repeat CBC on ff up with PCP in [address] findings The heart is mildly enlarged. Atherosclerosis of the aorta. 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 Medical history significant for hypertension, hyperlipidemia, urolithiasis, DM2 on oral medications with ISS at home, breast cancer status post surgery/chemoradiation on letrozole, history of BRCA gene mutation, chronic thrombocytopenia, chronic pain, urolithiasis, ongoing tobacco abuse. Last confinement June 2022 under general surgery service for bilateral mastectomy for breast cancer. 1 day history of achy right-sided abdominal/flank pain with nausea vomiting symptoms reminiscent of kidney stone pain from 5 years ago during a trip in [place]. Spontaneous passage of stone at [place] emergency room. No headache, no chest pain, no SOB, no hematuria. Patient seen at ER yesterday afternoon. CT abdomen pelvis showed 1. Moderate right-sided hydroureteronephrosis secondary to an obstructing 4 mm calculus of the ureterovesicular junction. 2. Nonobstructing left nephrolithiasis. 3. Cirrhosis with hepatic steatosis. Patient discharged home on Flomax and antibiotic course. Patient returned to ER due to worsening symptoms. SBP 190s upon arrival at the ER. Medical History as above Surgical History : Bilateral mastectomy, breast biopsy, vascular procedure Family History : Throat cancer, breast cancer, brain tumor Personal/Social history : Half pack daily, no EtOH intake, disabled Admission Exam Per Admitting Provider GENERAL: Comfortable, slightly anxious, obese, pleasant, no respiratory distress SKIN: Normal color, warm HEENT: [place] palpebral conjunctivae, no ptosis, dry buccal mucosa NECK : Supple, no tenderness CHEST : CTA, no tenderness HEART : RRR, no obvious murmurs ABDOMEN: Some distention, right-sided abdominal tenderness EXTREMITIES : Minimal LE swelling, no LE tenderness, no other conspicuous deformities noted NEUROLOGIC : Coherent, no facial asymmetry, no other gross focality Discharge Exam General- oriented x 3, not in distress, speaks in sentences with no effort or accessory muscle use Eyes- anicteric Neck- no JVD Lungs- clear breath sounds bilaterally, no rales/wheezes Heart- normal rate, regular rhythm; no murmurs Abdomen- normal bowel sounds, nondistended, soft, nontender Extremities- no pretibial edema, no calf tenderness Neuro- alert, oriented x 3; no gross focal neurologic deficits Skin- warm & dry Updated Medication List Medication Instructions Recorded Confirmed Type ondansetron HCl 8 mg tablet 8 mg PO Q12H PRN Nausea 08/10/20 11/18/23 History pravastatin 20 mg tablet 20 mg PO QPM 08/10/20 11/18/23 History dulaglutide 4.5 mg/0.5 mL 4.5 mg (0.5 mL) subcut WK #6 mL 08/02/21 11/18/23 Rx subcutaneous pen injector insulin aspart U-100 100 unit/mL 1 sliding scale dose subcut UD PRN 07/14/22 11/18/23 History (3 mL) subcutaneous pen (Novolog Hyperglycemia FlexPen U-100 Insulin aspart) magnesium 250 mg tablet 500 mg PO HS 07/14/22 11/18/23 History albuterol sulfate 90 mcg/actuation 1 puff inhalation QID PRN 08/03/22 11/18/23 History aerosol inhaler Shortness Of Breath empagliflozin 10 mg tablet 10 mg PO DAILY 08/29/22 11/18/23 History letrozole 2.5 mg tablet 2.5 mg PO QAM 09/05/22 11/18/23 History omeprazole 20 mg capsule,delayed 20 mg PO QPM #90 caps 02/26/23 11/18/23 Rx release mupirocin calcium 2 % topical cream 1 applic topical TID PRN Radiation 06/15/23 11/18/23 History dermatitis hydrocodone 5 mg-acetaminophen 325 1 tab PO Q6H PRN pain #20 tabs 11/17/23 11/18/23 Rx mg tablet azelastine 137 mcg (0.1 %) nasal 1 spray intranasal AMHS 11/18/23 11/18/23 History spray baclofen 10 mg tablet 10 mg PO HS 11/18/23 11/18/23 History ipratropium 20 mcg-albuterol 100 1 puff inhalation UD 11/18/23 11/18/23 History mcg/actuation mist for inhalation (Combivent Respimat) oxycodone 30 mg tablet 30 mg PO Q4H PRN Pain 11/18/23 11/18/23 History cefdinir 300 mg capsule 300 mg PO BID 5 days #10 caps 11/19/23 Rx nitrofurantoin 100 mg PO Q12H 5 days #10 caps 11/20/23 Rx monohydrate/macrocrystals 100 mg capsule (Macrobid) tamsulosin 0.4 mg capsule 0.4 mg PO DAILY #30 caps 11/20/23 Rx Hospital Stay Data Consultations 11/18/23 01:19 ED Decision to Admit Stat 11/18/23 05:00 Consult Urology Routine Procedures Performed Operation Date: 11/19/23 07:00 Actual Procedures p Cystoscopy, Right Ureteroscopy, Stone Basket Treatment, Stent Insertion- Right(Right) - Baltazar Padgett, Diagnostic Imagining Performed Laboratory Results WBC 6.58 K/ul (4.8-10.8) 11/18/23 15:17 RBC 4.47 M/uL (4.20-5.40) 11/18/23 15:17 Hgb 14.3 g/dl (12.0-16.0) 11/18/23 15:17 Hct 42.5 % (37.0-47.0) 11/18/23 15:17 MCV 95.1 fL (80.0-100.0) 11/18/23 15:17 MCH 32.0 pg (25.0-34.0) 11/18/23 15:17 MCHC 33.6 g/dL (32.0-36.0) 11/18/23 15:17 RDW Std Deviation 43.2 fL (36.4-46.3) 11/18/23 15:17 RDW Coeff of Josephine 12.4 % (11.5-14.5) 11/18/23 15:17 Plt Count 94 K/uL (130-400) L 11/18/23 15:17 MPV 10.5 fL (9.4-12.4) 11/18/23 15:17 Immature Gran % (Auto) 0.5 % 11/18/23 15:17 Neut % (Auto) 73.3 % 11/18/23 15:17 Lymph % (Auto) 16.0 % 11/18/23 15:17 Brooks % (Auto) 8.5 % 11/18/23 15:17 Eos % (Auto) 1.1 % 11/18/23 15:17 Baso % (Auto) 0.6 % 11/18/23 15:17 Neut # (Auto) 4.83 K/uL (1.40-6.50) 11/18/23 15:17 Lymph # (Auto) 1.05 K/uL (1.20-3.40) L 11/18/23 15:17 Brooks # (Auto) 0.56 K/uL (0.11-0.59) 11/18/23 15:17 Eos # (Auto) 0.07 K/uL (0.00-0.50) 11/18/23 15:17 Baso # (Auto) 0.04 K/uL (0.00-0.20) 11/18/23 15:17 Immature Gran # (Auto) 0.03 K/uL (0.01-0.20) 11/18/23 15:17 Platelet Estimate Decreased (Normal) L 11/17/23 23:15 Sodium 137 mmol/L (136-145) 11/19/23 07:51 Potassium 4.2 mmol/L (3.5-5.1) 11/19/23 07:51 Chloride 105 mmol/L (98-107) 11/19/23 07:51 Carbon Dioxide 26 mmol/L (21-32) 11/19/23 07:51 Anion Gap 6 (3-11) 11/19/23 07:51 BUN 9 mg/dl (6-23) 11/19/23 07:51 Creatinine 0.65 mg/dl (0.6-1.2) 11/19/23 07:51 Est Cr Clr Drug Dosing 123.6 ml/min 11/19/23 07:51 Est GFR ( Amer) 118.3 ml/min 11/19/23 07:51 Est GFR (Non-Af Amer) 102.1 ml/min 11/19/23 07:51 BUN/Creatinine Ratio 13.8 (10-20) 11/19/23 07:51 Glucose 119 mg/dl (70-99(Fasting)) H 11/19/23 07:51 POC Glucose 103 mg/dl (70-99) H 11/19/23 17:49 Calcium 8.8 mg/dl (8.6-10.3) 11/19/23 07:51 Total Bilirubin 0.6 mg/dl (0.2-1.0) 11/17/23 23:15 AST 23 U/L (13-39) 11/17/23 23:15 ALT 32 U/L (7-52) 11/17/23 23:15 Alkaline Phosphatase 148 U/L (34-104) H 11/17/23 23:15 Total Protein 7.1 gm/dl (6.0-8.3) 11/17/23 23:15 Albumin 4.2 gm/dl (3.4-5.0) 11/17/23 23:15 Globulin 2.9 gm/dl (2.5-4.0) 11/17/23 23:15 Albumin/Globulin Ratio 1.4 (0.9-2) 11/17/23 23:15 Urine Color Dark Yellow 11/18/23 00:00 Urine Appearance Turbid (Clear) A 11/18/23 00:00 Urine pH 5.0 (4.5-7.5) 11/18/23 00:00 Ur Specific [place] 1.034 (1.000-1.030) H 11/18/23 00:00 Urine Protein Trace (Negative) H 11/18/23 00:00 Urine Glucose (UA) Trace (Negative) H 11/18/23 00:00 Urine Ketones Trace (Negative) H 11/18/23 00:00 Urine Blood 3+ (Negative) H 11/18/23 00:00 Urine Nitrite Negative (Negative) 11/18/23 00:00 Urine Bilirubin Negative (Negative) 11/18/23 00:00 Urine Urobilinogen Negative (Negative) 11/18/23 00:00 Ur Leukocyte Esterase Trace (Negative) H 11/18/23 00:00 Urine WBC (Auto) 6-10 /hpf (0-5) H 11/18/23 00:00 Urine RBC (Auto) >20 /hpf (0-2) H 11/18/23 00:00 U Hyaline Cast (Auto) 0-2 /lpf (0-2) 11/18/23 00:00 U Epithel Cells (Auto) 6-10 /hpf (0-2) H 11/18/23 00:00 Urine Bacteria (Auto) 1+ (None Seen) H 11/18/23 00:00 Impressions Abdomen/Pelvis CT 11/18/23 09:[address] WITHOUT CONTRAST CT DOSE: 1479.25 mGy.cm HISTORY: Acute right-sided flank pain ff up urolithiasis TECHNIQUE: Multiaxial CT images of the abdomen and pelvis were performed without contrast. A dose lowering technique was utilized adhering to the principles of ALARA. COMPARISON STUDY: 11/17/2023 FINDINGS: Postoperative changes compatible with bilateral mastectomy. The heart is mildly enlarged. Posttreatment related to scarring of the right middle lobe. There is no free air. The unenhanced spleen, pancreas and adrenal glands are unremarkable. Gallbladder is within normal limits. Mild fatty infiltration of the liver with marginal nodularity. 2 mm nonobstructing calculus of the inferior pole left kidney. Moderate right-sided hydroureteronephrosis secondary to an obstructing 4 mm calculus of the right ureterovesicular junction. Decompressed b ladder with wall thickening. Unremarkable uterus. Atherosclerosis of the aorta. No lymphadenopathy No bowel obstruction or bowel wall thickening. Small duodenal diverticulum. Normal appendix. No acute fracture. IMPRESSION: 1. Moderate right-sided hydroureteronephrosis secondary to an obstructing 4 mm calculus of the ureterovesicular junction, unchanged from the exam obtained less than 24 hours earlier. 2. Nonobstructing left nephrolithiasis. 3. Cirrhosis with hepatic steatosis. 4. Bilateral mastectomy. 5. Additional findings as above. ACT 112: Negative or not required by law. The above report was generated using voice recognition software. It may contain grammatical, syntax or spelling errors. Electronically signed by: Demetri Fuller M.D. 11/18/2023 10:37 AM Retrograde Pyelogram 11/19/23 00:00 [place] retrograde includes kub CLINICAL HISTORY: RT CYSTO STENT TECHNIQUE: 2 views were obtained with the C-arm in the OR with the above procedure. Total fluoroscopy time was 13.7 seconds. Radiation dose was 4.65 mGy. Comparison: Comparison is made to CT abdomen pelvis 11/18/2023 FINDINGS/IMPRESSION: Intraoperative images were obtained of right pyelogram and stent placement. In the final images, the stent is in satisfactory position. Please correlate with intraoperative fluoroscopy and operative report. ACT 112: Negative or not required by law. Electronically signed by: Donald Meng M.D. 11/19/2023 7:01 PM Pending Results Patient Have Any Pending Studies at Discharge: Yes Discharge Instructions Given to Patient (Per Discharging Provider) PLEASE REFER TO YOUR NEW MEDICATION LIST AND FOLLOW INSTRUCTIONS CAREFULLY. YOUR NEW MEDICATIONS INCLUDE: Cefdinir-antibiotic for possible UTI You can take Tylenol 650 mg every 4-6 hours as needed for pain. Do not take more than 3000 mg per 24 hours. You can also take ibuprofen 400 mg every 6 hours as needed for pain. Please drink plenty of water every day. Please take a probiotic daily for at least a month. [employer] recommended. PLEASE CALL YOUR PRIMARY CARE PHYSICIAN OR RETURN TO THE ER IF WITH WORSENING OF SYMPTOMS, INCLUDING Abdominal/flank/back pain, problems with urination, blood in the urine, fevers or chills, nausea vomiting, weakness, diarrhea, etc. FOLLOW UP WITH PRIMARY CARE PHYSICIAN In 1 to 2 weeks. Follow-up with urologist in 1 to 2 weeks. Please contact his office for an appointment. Contact information outlined above. Total Time Total Time Spent Total Time Spent (In Minutes): 40 minutes
--- NOTE | 2023-11-19 19:03 | Fluoroscopy Report ---
[place] retrograde includes kub CLINICAL HISTORY: RT CYSTO STENT TECHNIQUE: 2 views were obtained with the C-arm in the OR with the above procedure. Total fluoroscopy time was 13.7 seconds. Radiation dose was 4.65 mGy. Comparison: Comparison is made to CT abdomen pelvis 11/18/2023 FINDINGS/IMPRESSION: Intraoperative images were obtained of right pyelogram and stent placement. In t he final images, the stent is in satisfactory position. Please correlate with intraoperative fluoroscopy and operative report. ACT 112: Negative or not required by law. Electronically signed by: Donald Meng M.D. 11/19/2023 7:01 PM
== END 2023-11-19 18:30 | disposition home or self-care (01) | DRG 690 ==
LOC: ED 22:25 → 3N 11-18 03:34 → SUATTDRO 11-18 03:34 → 3N 11-18 04:20
DX: K76.0 Fatty (change of) liver, not elsewhere classified; D69.6 Thrombocytopenia, unspecified; Z15.01 Genetic susceptibility to malignant neoplasm of breast; Z79.811 Long term (current) use of aromatase inhibitors; N13.6 Pyonephrosis; Z88.8 Allergy status to other drugs, medicaments and biological substances; F17.210 Nicotine dependence, cigarettes, uncomplicated; I10 Essential (primary) hypertension; Z88.1 Allergy status to other antibiotic agents; Z79.899 Other long term (current) drug therapy; Z85.3 Personal history of malignant neoplasm of breast; E11.9 Type 2 diabetes mellitus without complications; Z88.5 Allergy status to narcotic agent; Z79.4 Long term (current) use of insulin; E78.5 Hyperlipidemia, unspecified; Z79.84 Long term (current) use of oral hypoglycemic drugs